=== PATIENT | female | born 1940 | race Caucasian/White ===

== ENCOUNTER 2017-07-21 17:18 | Emergency (ER) | payer MEDICARE, BC ==
[2017-07-21] MEDS ORDERED: Sodium Chloride 0.9% 10 ML Syringe FLUSH PRN (17:48)
[2017-07-21] MEDS ORDERED: Morphine 2 MG/ML Syringe IVPUSH ONE (17:50)
[2017-07-21] MEDS ORDERED: Sodium Chloride 0.9% 1,000 ML IV ONE (17:51)
--- NOTE | 2017-07-21 17:53 | EDM.PDOC ---
ED HPI GENERAL MEDICAL PROBLEM - General Chief Complaint: Gastrointestinal Problem Stated Complaint: DIARRHEA/WEAKNESS Time Seen by Provider: 07/21/17 17:45 Source of Information: Reports: Patient History Limitations: Reports: No Limitations - History of Present Illness INITIAL COMMENTS - FREE TEXT/NARRATIVE: Hilda is a 77-year-old female who presents to the emergency Department today with complaints of a 3 day history of watery frequent diarrhea. Patient endorses lower abdominal cramping, she denies any nausea or vomiting or hematochezia. Patient denies any fever or chills, she does endorse feeling weak with near syncope earlier today. Patient reports she has been trying to stay well-hydrated with water and Gatorade but feels she just cannot stand top of it. Patient denies any recent antibiotic use or sick contacts. Patient denies any chest pain, shortness of breath, URI symptoms. Onset: Gradual Duration: Day(s): (3) - Related Data Allergies Allergy/AdvReac Type Severity Reaction Status Date / Time celecoxib Allergy Cannot Verified 05/14/14 09:40 Remember hydrocodone Allergy Cannot Verified 05/14/14 09:40 Remember naproxen Allergy Hives Verified 05/14/14 09:40 Sulfa (Sulfonamide Allergy Vomiting Verified 07/21/17 17:31 Antibiotics) terfenadine [From [place]] Allergy Hives Verified 05/14/14 09:40 Home Meds: Home Meds Acetaminophen [Tylenol Extra Strength] 500 mg PO BEDTIME PRN 05/14/14 [History] Ascorbic Acid [Vitamin C] 500 mg PO DAILY 05/14/14 [History] Aspirin 81 mg PO DAILY 05/14/14 [History] Calcium Carbonate/Vitamin D3 [Calcium 600-Vit D3 200 Tablet] 1 each PO DAILY [History] Estradiol [Vagifem] 10 mcg VG ASDIRECTED 05/14/14 [History] Losartan [Cozaar] 100 mg PO BID 05/14/14 [History] Multivitamin [Multi-Vitamin Daily] 1 each PO DAILY 05/14/14 [History] Omeprazole 20 mg PO BIDAC 05/14/14 [History] Pravastatin Sodium [Pravastatin (Pravachol)] 40 mg PO DAILY 05/14/14 [History] Cyclobenzaprine [Flexeril] 10 mg PO DAILY 07/21/17 [History] Oxybutynin Chloride [Oxybutynin Chloride] 5 mg PO BID 07/21/17 [History] Pantoprazole Sodium [Pantoprazole Sodium] 40 mg PO DAILY 07/21/17 [History] traZODone HCl [Trazodone HCl] 50 mg PO BEDTIME 07/21/17 [History] Past Medical History Cardiovascular History: Reports: Hypertension Gastrointestinal History: Reports: GERD Genitourinary History: Reports: Urinary Incontinence Musculoskeletal History: Reports: Arthritis, Back Pain, Chronic Psychiatric History: Reports: Depression Social & Family History - Tobacco Use Years of Tobacco use: 1 - Caffeine Use Caffeine Use: Reports: Coffee - Alcohol Use Days Per Week of Alcohol Use: 3 Number of Drinks Per Day: 1 Total Drinks Per Week: 3 - Recreational Drug Use Recreational Drug Use: No ED ROS GENERAL - Review of Systems Review Of Systems: ROS reveals no pertinent complaints other than HPI. ED EXAM, GI/ABD - Physical Exam Exam: See Below Exam Limited By: No Limitations General Appearance: Alert, WD/WN, No Apparent Distress Eyes: Bilateral: Normal Appearance, EOMI Ears: Normal External Exam Nose: Normal Inspection Throat/Mouth: Normal Oropharynx, Other (Modestly dehydrated) Head: Atraumatic Neck: Normal Inspection Respiratory/Chest: No Respiratory Distress, Lungs Clear Cardiovascular: Regular Rate, Rhythm, No Murmur GI/Abdominal Exam: Normal Bowel Sounds, Soft, Tender (Lower abdomen, midline.) Extremities: Normal Inspection Neurological: Alert, Oriented, CN II-XII Intact Psychiatric: Normal Affect, Normal Mood Skin Exam: Warm, Dry, Intact Lymphatic: No Adenopathy Course - Vital Signs Last Recorded V/S: Last Vital Signs Temp 36.9 C 07/21/17 17:38 Pulse 75 07/21/17 17:38 Resp 16 07/21/17 17:38 BP 104/48 L 07/21/17 17:38 Pulse Ox 90 L 07/21/17 17:38 Hilda is a 77-year-old female who presents to the emergency department today with complaints of weakness and near syncope after having 3 days of frequent watery diarrhea. Please refer to history of present illness in focused exam. Patient is modestly dry and exam, she is modestly pale. Likely a viral gastroenteritis, she denies any recent antibiotic use to suggest Clostridium difficile. Peripheral IV was established and patient was given a liter of fluid here in the emergency department as well as 1 mg of morphine for abdominal cramping which did relieve her pain. CBC was obtained which returned with a white count of 6.4, hemoglobin is slightly low at 10.8. Patient's sodium today is 132 and potassium is 3.5, remaining CMP is within normal limits. Patient is feeling much better here after 1 L of fluid, since her arrival to the emergency room, she has had no diarrhea and has been unable to provide a stool sample for culture. Patient feels she is stable to be discharged home, she was walked around the emergency department without any difficulty, she denies any current dizziness or lightheadedness. I did discuss with patient starting a probiotic, culturelle, which should help resolve the diarrhea. I did inform patient that if her diarrhea continues, we will send her home with stool collection containers which she can return to lab for evaluation. I encouraged patient to maintain hydration, encouraged drinking Gatorade or Powerade to help replace her electrolytes. Reasons to return to the emergency department were discussed in detail, and would like patient seen by her primary care provider in the next week. Patient is agreeable with plan of care and was discharged in stable condition with her sister driving. - Orders/Labs/Meds Orders: Active Orders 24 hr Category Date Time Status Peripheral IV Care [RC] . DIRECTED Care 07/21/17 17:48 Active CLOSTRIDIUM DIFFICILE BY PCR [RM] Stat Lab 07/21/17 17:49 Uncollected CULTURE STOOL + SHIGATOX [RM] Stat Lab 07/21/17 17:49 Uncollected OVA AND PARASITES [MREF] Stat Lab 07/21/17 17:50 Uncollected WBC, STOOL [OP] Stat Lab 07/21/17 17:50 Uncollected Sodium Chloride 0.9% [Saline Flush] Med 07/21/17 17:48 Active 10 ml FLUSH ASDIRECTED PRN Peripheral IV Insertion Adult [OM.PC] Routine Oth 07/21/17 17:48 Ordered Medication Orders Sodium Chloride (Saline Flush) 10 ml FLUSH ASDIRECTED PRN PRN Reason: Keep Vein Open Last Admin: 07/21/17 18:21 Dose: 10 ml Labs: Laboratory Tests 07/21/17 07/21/17 07/21/17 Range/Units 18:02 18:02 18:02 WBC 6.4 (4.5-11.0) K/uL RBC 3.49 (3.30-5.50) M/uL Hgb 10.8 L (12.0-15.0) g/dL Hct 32.1 L (36.0-48.0) % MCV 92 (80-98) fL MCH 31 (27-31) pg MCHC 34 (32-36) % Plt Count 218 (150-400) K/uL Neut % (Auto) 65 (36-66) % Lymph % (Auto) 17 L (24-44) % [place] % (Auto) 16 H (2-6) % Eos % (Auto) 2 (2-4) % Baso % (Auto) 0 (0-1) % Sodium 132 L (140-148) mmol/L Potassium 3.5 L (3.6-5.2) mmol/L Chloride 100 (100-108) mmol/L Carbon Dioxide 23 (21-32) mmol/L Anion Gap 12.5 (5.0-14.0) mmol/L BUN 14 (7-18) mg/dL Creatinine 0.8 (0.6-1.0) mg/dL Est Cr Clr Drug Dosing 42.30 mL/min Estimated GFR (MDRD) > 60 (>60) Glucose 133 H (74-106) mg/dL Calcium 8.3 L (8.5-10.1) mg/dL Total Bilirubin 0.7 (0.2-1.0) mg/dL AST 19 (15-37) U/L ALT 30 (12-78) U/L Alkaline Phosphatase 71 (46-116) U/L Total Protein 6.4 (6.4-8.2) g/dL Albumin 3.4 (3.4-5.0) g/dL Globulin 3.0 (2.3-3.5) g/dL Albumin/Globulin Ratio 1.1 L (1.2-2.2) Lipase 78 (73-393) U/L Meds: Medications Generic Name Dose Route Start Last Admin Trade Name Freq PRN Reason Stop Dose Admin Sodium Chloride 10 ml 07/21/17 17:48 07/21/17 18:21 Saline Flush FLUSH 10 ml ASDIRECTED PRN Administration Keep Vein Open Discontinued Medications Generic Name Dose Route Start Last Admin Trade Name Freq PRN Reason Stop Dose Admin Sodium Chloride 1,000 mls @ 999 mls/hr 07/21/17 17:51 07/21/17 18:20 Normal Saline IV 07/21/17 18:51 999 mls/hr .BOLUS ONE Administration Morphine Sulfate 1 mg 07/21/17 17:50 07/21/17 18:21 Morphine IVPUSH 07/21/17 17:51 1 mg ONETIME ONE Administration Departure - Departure Time of Disposition: 20:00 Disposition: Home, Self-Care 01 Condition: Good Clinical Impression: Diarrhea - Discharge Information Instructions: Dehydration, Adult, [id number], Diarrhea, Adult, [id number] Referrals: PCP,None [Primary Care Provider] - Forms: ED Department Discharge Additional Instructions: Hilda, I would strongly recommend starting a probiotic, Culturelle, twice daily until your diarrhea resolves. He should be able to find this by the pharmacy at [facility]. I would recommend binding foods for the next 24-48 hours including applesauce, bananas, peanut butter, eggs. If your diarrhea continues at home, please bring back a stool sample for evaluation. As discussed, your sodium and potassium were mildly low today, I would strongly encourage you to drink at least 2 bottles of Gatorade a day until your diarrhea has stopped. your hemoglobin is also mildly low at 10.8, I don't know if this is normal for you or not but would like this rechecked along with your electrolyte levels in the next week at your primary care clinic. If your symptoms continue or you develop worsening lightheadedness or weakness please return to the emergency department. It was nice meeting you and your sister and I hope you feel better soon. - My Orders Last 24 Hours: My Active Orders 07/21/17 17:48 Peripheral IV Care [RC] . DIRECTED Sodium Chloride 0.9% [Saline Flush] 10 ml FLUSH ASDIRECTED PRN Peripheral IV Insertion Adult [OM.PC] Routine 07/21/17 17:49 CLOSTRIDIUM DIFFICILE BY PCR [RM] Stat CULTURE STOOL + SHIGATOX [RM] Stat 07/21/17 17:50 OVA AND PARASITES [MREF] Stat WBC, STOOL [OP] Stat - Assessment/Plan Last 24 Hours: My Active Orders 07/21/17 17:48 Peripheral IV Care [RC] . DIRECTED Sodium Chloride 0.9% [Saline Flush] 10 ml FLUSH ASDIRECTED PRN Peripheral IV Insertion Adult [OM.PC] Routine 07/21/17 17:49 CLOSTRIDIUM DIFFICILE BY PCR [RM] Stat CULTURE STOOL + SHIGATOX [RM] Stat 07/21/17 17:50 OVA AND PARASITES [MREF] Stat WBC, STOOL [OP] Stat
[2017-07-21 20:07] VITALS: BP 133/59
== END 2017-07-21 20:02 | disposition home or self-care (01) ==
LOC: JP.ED 17:18
DX: R19.7 Diarrhea, unspecified (principal); I10 Essential (primary) hypertension; K21.9 Gastro-esophageal reflux disease without esophagitis; F43.29 Adjustment disorder with other symptoms; Z79.82 Long term (current) use of aspirin; Z79.899 Other long term (current) drug therapy; Z88.5 Allergy status to narcotic agent; Z88.2 Allergy status to sulfonamides; Z88.8 Allergy status to other drugs, medicaments and biological substances
CPT/HCPCS: 36415; 80053; 83690; 85025; 96361; 96374; 99284; J2270; J7040; J7050

== ENCOUNTER 2018-02-14 09:32 | Emergency (ER) | payer MEDICARE, BC ==
--- NOTE | 2018-02-14 10:25 | EDM.PDOC ---
ED HPI GENERAL MEDICAL PROBLEM - General Chief Complaint: General Stated Complaint: CHEST TIGHTNESS; WEAKNESS Time Seen by Provider: 02/14/18 10:25 Source of Information: Reports: Patient History Limitations: Reports: No Limitations - History of Present Illness INITIAL COMMENTS - FREE TEXT/NARRATIVE: pt has been very fatiqued. She developed chest tightness today. She was not real sob. She has total care of her and her household. She is very fatiqued with all that she has to do. Onset: Other ( The chest tightness started today. ) Duration: Hour(s): Location: Reports: Chest Associated Symptoms: Reports: Shortness of Breath, Other ( chest tightness) Chest Pain Score (Numeric/FACES): 6 - Related Data Allergies Allergy/AdvReac Type Severity Reaction Status Date / Time celecoxib Allergy Cannot Verified 02/14/18 10:06 Remember hydrocodone Allergy Cannot Verified 02/14/18 10:06 Remember naproxen Allergy Hives Verified 02/14/18 10:06 Sulfa (Sulfonamide Allergy Vomiting Verified 02/14/18 10:06 Antibiotics) terfenadine [From [place]] Allergy Hives Verified 02/14/18 10:06 Home Meds: Home Meds Acetaminophen [Tylenol Extra Strength] 500 mg PO BEDTIME PRN 05/14/14 [History] Ascorbic Acid [Vitamin C] 500 mg PO DAILY 05/14/14 [History] Aspirin 81 mg PO DAILY 05/14/14 [History] Calcium Carbonate/Vitamin D3 [Calcium 600-Vit D3 200 Tablet] 1 each PO DAILY [History] Losartan [Cozaar] 100 mg PO BID 05/14/14 [History] Multivitamin [Multi-Vitamin Daily] 1 each PO DAILY 05/14/14 [History] Pravastatin Sodium [Pravastatin (Pravachol)] 40 mg PO DAILY 05/14/14 [History] Cyclobenzaprine [Flexeril] 10 mg PO DAILY 07/21/17 [History] Oxybutynin Chloride [Oxybutynin Chloride] 5 mg PO BID 07/21/17 [History] Pantoprazole Sodium [Pantoprazole Sodium] 40 mg PO DAILY 07/21/17 [History] traZODone HCl [Trazodone HCl] 50 mg PO BEDTIME 07/21/17 [History] Diclofenac Potassium [Cataflam] 1 tab PO BID 02/14/18 [History] Docusate Sodium 1 cap PO BID 02/14/18 [History] Gabapentin [Neurontin] 1 cap PO TID 02/14/18 [History] Loratadine 1 tab PO DAILY 02/14/18 [History] Melatonin 1 tab PO BEDTIME 02/14/18 [History] Polyethylene Glycol 3350 [MiraLAX] 1 packet PO BID 02/14/18 [History] Pseudoephedrine HCl 1 tab PO DAILY 02/14/18 [History] Past Medical History HEENT History: Reports: Impaired Vision Cardiovascular History: Reports: Hypertension Gastrointestinal History: Reports: GERD Genitourinary History: Reports: Urinary Incontinence Musculoskeletal History: Reports: Arthritis, Back Pain, Chronic Psychiatric History: Reports: Depression - Past Surgical History Female Surgical History: Reports: Hysterectomy Social & Family History - Tobacco Use Smoking Status *Q: Never Smoker Years of Tobacco use: 1 - Caffeine Use Caffeine Use: Reports: Coffee - Alcohol Use Days Per Week of Alcohol Use: 3 Number of Drinks Per Day: 1 Total Drinks Per Week: 3 - Recreational Drug Use Recreational Drug Use: No ED ROS GENERAL - Review of Systems Review Of Systems: See Below Constitutional: Reports: No Symptoms HEENT: Reports: No Symptoms Respiratory: Reports: No Symptoms Cardiovascular: Reports: Chest Pain, Other ( Pt did describe her tightness but she did not have true chest pain. ) GI/Abdominal: Reports: No Symptoms : Reports: No Symptoms Musculoskeletal: Reports: No Symptoms Skin: Reports: No Symptoms ED EXAM, GENERAL - Physical Exam Exam: See Below Free Text/Narrative:: pt arrived with tightness in her chest which has been going on part of the morning. Exam Limited By: No Limitations General Appearance: Alert, Mild Distress, Other ( After being her about 3/4 hour the tightness was gone. ) Ears: Normal TMs Nose: Normal Inspection Throat/Mouth: Normal Inspection Head: Atraumatic Neck: Normal Inspection Respiratory/Chest: No Respiratory Distress Cardiovascular: Regular Rate, Rhythm GI/Abdominal: Soft, Non-Tender (Female) Exam: Deferred Rectal (Female) Exam: Deferred Back Exam: Normal Inspection Extremities: Normal Inspection Neurological: Alert, Oriented, Normal Cognition Psychiatric: Anxious Course - Vital Signs Last Recorded V/S: Last Vital Signs Temp 35 C L 02/14/18 10:04 Pulse 71 02/14/18 10:40 Resp 11 L 02/14/18 10:40 BP 149/57 H 02/14/18 10:40 Pulse Ox 98 02/14/18 10:40 - Orders/Labs/Meds Orders: Active Orders 24 hr Category Date Time Status EKG Documentation Completion [RC] ASDIRECTED Care 02/14/18 10:23 Active EKG Documentation Completion [RC] ASDIRECTED Care 02/14/18 13:18 Ordered UA W/MICROSCOPIC [URIN] Urgent Lab 02/14/18 10:24 Ordered EKG 12 Lead [EK] Routine Ther 02/14/18 10:23 Ordered EKG 12 Lead [EK] Routine Ther 02/14/18 13:18 Ordered Labs: Laboratory Tests 02/14/18 02/14/18 02/14/18 Range/Units 10:33 10:33 10:33 WBC 9.6 (4.5-11.0) K/uL RBC 3.83 (3.30-5.50) M/uL Hgb 11.8 L (12.0-15.0) g/dL Hct 35.9 L (36.0-48.0) % MCV 94 (80-98) fL MCH 31 (27-31) pg MCHC 33 (32-36) % Plt Count 310 (150-400) K/uL Neut % (Auto) 67 H (36-66) % Lymph % (Auto) 22 L (24-44) % [place] % (Auto) 9 H (2-6) % Eos % (Auto) 1 L (2-4) % Baso % (Auto) 0 (0-1) % Sodium 141 (140-148) mmol/L Potassium 4.1 (3.6-5.2) mmol/L Chloride 104 (100-108) mmol/L Carbon Dioxide 30 (21-32) mmol/L Anion Gap 7.5 (5.0-14.0) mmol/L BUN 26 H D (7-18) mg/dL Creatinine 0.7 (0.6-1.0) mg/dL Est Cr Clr Drug Dosing 48.34 mL/min Estimated GFR (MDRD) > 60 (>60) Glucose 100 (74-106) mg/dL Calcium 8.8 (8.5-10.1) mg/dL Ferritin (8-388) ng/ml Total Bilirubin 0.5 (0.2-1.0) mg/dL AST 39 H D (15-37) U/L ALT 90 H (12-78) U/L Alkaline Phosphatase 63 (46-116) U/L Creatine Kinase 83 (26-192) U/L Troponin I 0.063 H* (0.000-0.056) ng/mL Total Protein 6.1 L (6.4-8.2) g/dL Albumin 3.6 (3.4-5.0) g/dL Globulin 2.5 (2.3-3.5) g/dL Albumin/Globulin Ratio 1.4 (1.2-2.2) 02/14/18 02/14/18 Range/Units 11:57 12:51 WBC (4.5-11.0) K/uL RBC (3.30-5.50) M/uL Hgb (12.0-15.0) g/dL Hct (36.0-48.0) % MCV (80-98) fL MCH (27-31) pg MCHC (32-36) % Plt Count (150-400) K/uL Neut % (Auto) (36-66) % Lymph % (Auto) (24-44) % [place] % (Auto) (2-6) % Eos % (Auto) (2-4) % Baso % (Auto) (0-1) % Sodium (140-148) mmol/L Potassium (3.6-5.2) mmol/L Chloride (100-108) mmol/L Carbon Dioxide (21-32) mmol/L Anion Gap (5.0-14.0) mmol/L BUN (7-18) mg/dL Creatinine (0.6-1.0) mg/dL Est Cr Clr Drug Dosing mL/min Estimated GFR (MDRD) (>60) Glucose (74-106) mg/dL Calcium (8.5-10.1) mg/dL Ferritin 100 (8-388) ng/ml Total Bilirubin (0.2-1.0) mg/dL AST (15-37) U/L ALT (12-78) U/L Alkaline Phosphatase (46-116) U/L Creatine Kinase (26-192) U/L Troponin I 0.278 H* (0.000-0.056) ng/mL Total Protein (6.4-8.2) g/dL Albumin (3.4-5.0) g/dL Globulin (2.3-3.5) g/dL Albumin/Globulin Ratio (1.2-2.2) Meds: Medications Discontinued Medications Generic Name Dose Route Start Last Admin Trade Name Michael PRN Reason Stop Dose Admin Aspirin 324 mg 02/14/18 11:08 02/14/18 11:35 Aspirin PO 02/14/18 11:09 324 mg ONETIME ONE Administration Loperamide HCl 2 mg 02/14/18 11:37 02/14/18 11:52 Imodium PO 02/14/18 11:38 2 mg ONETIME ONE Administration - Re-Assessments/Exams Free Text/Narrative Re-Assessment/Exam: 02/14/18 13:49 pt had tightness for about 1/2 hour and then it went away. She has not had further discomfort. She has been stable. Her first trop was borderline. -- .063. In 3 hours her trop was repeated and was .278 02/14/18 13:51 Departure - Departure Time of Disposition: 13:51 Disposition: DC/Tfer to Acute Hospital 02 Condition: Fair Clinical Impression: Elevated troponin, Non-Q wave infarction, Anemia - Discharge Information Referrals: Hiren Jorge MD [Primary Care Provider] - Forms: ED Department Discharge Care Plan Goals: transfer to [place] - My Orders Last 24 Hours: My Active Orders 02/14/18 10:23 EKG Documentation Completion [RC] ASDIRECTED EKG 12 Lead [EK] Routine 02/14/18 10:24 UA W/MICROSCOPIC [URIN] Urgent 02/14/18 13:18 EKG Documentation Completion [RC] ASDIRECTED EKG 12 Lead [EK] Routine - Assessment/Plan Last 24 Hours: My Active Orders 02/14/18 10:23 EKG Documentation Completion [RC] ASDIRECTED EKG 12 Lead [EK] Routine 02/14/18 10:24 UA W/MICROSCOPIC [URIN] Urgent 02/14/18 13:18 EKG Documentation Completion [RC] ASDIRECTED EKG 12 Lead [EK] Routine
--- NOTE | 2018-02-14 11:15 | CR ---
Chest 1V Frontal FINDINGS: There is mild cardiac enlargement. The vascular structures appear within normal limits.. No infiltrates or effusions are demonstrated. There are findings of the right shoulder consistent with rotator cuff tear. IMPRESSION: 1. No acute findings.
[2018-02-14] MEDS: Aspirin 81 MG Tab.Chew PO ONE (11:35)
[2018-02-14] MEDS: Loperamide 2 MG Cap PO ONE (11:52)
[2018-02-14] MEDS: Clopidogrel 75 MG Tab PO ONE (13:49)
[2018-02-14 13:54] VITALS: BP 133/61
== END 2018-02-14 15:02 ==
LOC: JP.ED 09:32
DX: I21.4 Non-ST elevation (NSTEMI) myocardial infarction (principal); R79.89 Other specified abnormal findings of blood chemistry; D64.9 Anemia, unspecified; K21.9 Gastro-esophageal reflux disease without esophagitis; I10 Essential (primary) hypertension; Z88.2 Allergy status to sulfonamides; Z88.8 Allergy status to other drugs, medicaments and biological substances; Z88.5 Allergy status to narcotic agent; Z79.82 Long term (current) use of aspirin; Z79.899 Other long term (current) drug therapy
CPT/HCPCS: 36415; 71045; 71045-26; 80053; 82550; 82728; 84484; 85025; 85730; 93005; 99285-25; A9270-GY

== ENCOUNTER 2018-02-19 21:35 | Emergency (ER) | payer MEDICARE, BC ==
[2018-02-19 22:15] VITALS: BP 118/54
--- NOTE | 2018-02-19 22:26 | EDM.PDOC ---
ED HPI GENERAL MEDICAL PROBLEM - General Chief Complaint: Skin Complaint Stated Complaint: R ARM PAIN/BRUISING Time Seen by Provider: 02/19/18 22:20 Source of Information: Reports: Patient, Family History Limitations: Reports: No Limitations - History of Present Illness INITIAL COMMENTS - FREE TEXT/NARRATIVE: pt arrived with bruising on both arms. She has some redish discoloration on the center of the bruise which is a little unusual in color. She has been put on the britlina as a thinner. She does not have swelling and she does not have tenderness and it does not feel warm. Sh has been applying lotion to the arm. Onset: Today, Other ( The color did change today. She was sent to [facility] in [place] on Sunday and did have a cardiac cath and had a stent placed. ) Duration: Hour(s): Location: Reports: Upper Extremity, Right Associated Symptoms: Reports: No Other Symptoms Treatments RAMPMAN: Reports: Other (see below) Other Treatments RAMPMAN: none - Related Data Allergies Allergy/AdvReac Type Severity Reaction Status Date / Time celecoxib Allergy Cannot Verified 02/19/18 22:15 Remember hydrocodone Allergy Cannot Verified 02/19/18 22:15 Remember naproxen Allergy Hives Verified 02/19/18 22:15 Sulfa (Sulfonamide Allergy Vomiting Verified 02/19/18 22:15 Antibiotics) terfenadine [From [place]] Allergy Hives Verified 02/19/18 22:15 Home Meds: Home Meds Acetaminophen [Tylenol Extra Strength] 500 mg PO BEDTIME PRN 05/14/14 [History] Ascorbic Acid [Vitamin C] 500 mg PO DAILY 05/14/14 [History] Aspirin 81 mg PO DAILY 05/14/14 [History] Calcium Carbonate/Vitamin D3 [Calcium 600-Vit D3 200 Tablet] 1 each PO DAILY [History] Losartan [Cozaar] 100 mg PO BID 05/14/14 [History] Multivitamin [Multi-Vitamin Daily] 1 each PO DAILY 05/14/14 [History] Pravastatin Sodium [Pravastatin (Pravachol)] 40 mg PO DAILY 05/14/14 [History] Cyclobenzaprine [Flexeril] 10 mg PO DAILY 07/21/17 [History] Oxybutynin Chloride 5 mg PO BID 07/21/17 [History] Pantoprazole Sodium 40 mg PO DAILY 07/21/17 [History] traZODone HCl [Trazodone HCl] 50 mg PO BEDTIME 07/21/17 [History] Diclofenac Potassium [Cataflam] 1 tab PO BID 02/14/18 [History] Docusate Sodium 1 cap PO BID 02/14/18 [History] Gabapentin [Neurontin] 1 cap PO TID 02/14/18 [History] Loratadine 1 tab PO DAILY 02/14/18 [History] Melatonin 1 tab PO BEDTIME 02/14/18 [History] Polyethylene Glycol 3350 [MiraLAX] 1 packet PO BID 02/14/18 [History] Pseudoephedrine HCl 1 tab PO DAILY 02/14/18 [History] Past Medical History HEENT History: Reports: Impaired Vision Cardiovascular History: Reports: Hypertension, PR Gastrointestinal History: Reports: GERD Genitourinary History: Reports: Urinary Incontinence Musculoskeletal History: Reports: Arthritis, Back Pain, Chronic Psychiatric History: Reports: Depression - Past Surgical History Cardiovascular Surgical History: Reports: Coronary Artery Stent Female Surgical History: Reports: Hysterectomy Social & Family History - Tobacco Use Smoking Status *Q: Never Smoker Years of Tobacco use: 1 - Caffeine Use Caffeine Use: Reports: Coffee - Alcohol Use Days Per Week of Alcohol Use: 3 Number of Drinks Per Day: 1 Total Drinks Per Week: 3 - Recreational Drug Use Recreational Drug Use: No ED ROS GENERAL - Review of Systems Review Of Systems: See Below Constitutional: Reports: No Symptoms HEENT: Reports: No Symptoms Respiratory: Reports: No Symptoms Cardiovascular: Reports: No Symptoms Endocrine: Reports: No Symptoms GI/Abdominal: Reports: No Symptoms : Reports: No Symptoms Musculoskeletal: Reports: Other (pt has a redish discoloration in the center of the bruise on the rt arm. There is a slight amount of the redness in the center of the bruise on the left. This is not tender, not swollen and does not feel hot. ) Skin: Reports: No Symptoms Neurological: Reports: No Symptoms ED EXAM, SKIN/RASH Exam: See Below Text/Narrative:: pt had a cardiac cath on Sunday and she has some redness in the center portion of the bruis on the rt arm. Exam Limited By: No Limitations General Appearance: Alert, Other (pt is feeling well and has mno pain. ) Ears: Normal TMs Nose: Normal Inspection Throat/Mouth: Normal Inspection Head: Atraumatic Neck: Normal Inspection Respiratory/Chest: No Respiratory Distress Extremities: Other ( rt arm is very bruised and there is a concern about the redish discoloration in the center of the bruise. There is no tenderness and no swelling. It does not feel hot. ) Course - Vital Signs Last Recorded V/S: Last Vital Signs Temp 36.8 C 02/19/18 22:14 Pulse 64 02/19/18 22:14 Resp 16 02/19/18 22:14 BP 118/54 L 02/19/18 22:14 Pulse Ox 99 02/19/18 22:14 Departure - Departure Time of Disposition: 22:30 Disposition: Home, Self-Care 01 Condition: Fair Clinical Impression: Bruise - Discharge Information Referrals: Hiren Jorge MD [Primary Care Provider] - Care Plan Goals: soak in tepid water followed by a cool pack. rtc for recheck if it should become hot or swollen.
== END 2018-02-19 22:46 | disposition home or self-care (01) ==
LOC: JP.ED 21:35
DX: S40.022A Contusion of left upper arm, initial encounter (principal); S40.021A Contusion of right upper arm, initial encounter; I25.2 Old myocardial infarction; I10 Essential (primary) hypertension; Z88.5 Allergy status to narcotic agent; Z88.2 Allergy status to sulfonamides; Z88.8 Allergy status to other drugs, medicaments and biological substances; Z79.899 Other long term (current) drug therapy; Z79.82 Long term (current) use of aspirin; X58.XXXA Exposure to other specified factors, initial encounter
CPT/HCPCS: 99283

== ENCOUNTER 2018-07-07 21:05 | Emergency (ER) | payer MEDICARE, BC ==
[2018-07-07 21:30] VITALS: BP 157/58
--- NOTE | 2018-07-07 22:02 | EDM.PDOC ---
ED HPI GENERAL MEDICAL PROBLEM - General Chief Complaint: Lower Extremity Injury/Pain Stated Complaint: LEFT ANKLE EDEMA Time Seen by Provider: 07/07/18 21:46 Source of Information: Reports: Patient History Limitations: Reports: No Limitations - History of Present Illness INITIAL COMMENTS - FREE TEXT/NARRATIVE: 78 yo presents to ER with mild pain and swelling left dorsum foot. Cannot recall trauma. She did wear saddles today and foot became swollen throughout the day. very tender and ecchymotic. Pt is anticoagulated with Plavix left foot Pain Score (Numeric/FACES): 6 - Related Data Allergies Allergy/AdvReac Type Severity Reaction Status Date / Time celecoxib Allergy Cannot Verified 07/07/18 21:41 Remember hydrocodone Allergy Rash Verified 07/07/18 21:41 naproxen Allergy Hives Verified 07/07/18 21:41 Sulfa (Sulfonamide Allergy Vomiting Verified 07/07/18 21:41 Antibiotics) terfenadine [From S[place]ane] Allergy Hives Verified 07/07/18 21:41 Home Meds: Home Meds Ascorbic Acid [Vitamin C] 500 mg PO DAILY 05/14/14 [History] Aspirin 81 mg PO DAILY 05/14/14 [History] Calcium Carbonate/Vitamin D3 [Calcium 600-Vit D3 200 Tablet] 1 each PO DAILY [History] Multivitamin [Multi-Vitamin Daily] 1 each PO DAILY 05/14/14 [History] Cyclobenzaprine [Flexeril] 10 mg PO DAILY 07/21/17 [History] Oxybutynin Chloride 5 mg PO BID 07/21/17 [History] Pantoprazole Sodium 40 mg PO DAILY 07/21/17 [History] traZODone HCl [Trazodone HCl] 50 mg PO BEDTIME 07/21/17 [History] Docusate Sodium 100 mg PO BID PRN 02/14/18 [History] Gabapentin [Neurontin] 200 mg PO TID 02/14/18 [History] Loratadine 10 mg PO DAILY 02/14/18 [History] Melatonin 5 mg PO BEDTIME 02/14/18 [History] Polyethylene Glycol 3350 [MiraLAX] 1 packet PO BID 02/14/18 [History] Losartan [Cozaar] 100 mg PO DAILY 02/19/18 [History] Metoprolol Tartrate 25 mg PO BID 02/19/18 [History] Nitroglycerin 1 tab SL ASDIRECTED 02/19/18 [History] atorvaSTATin [Lipitor] 40 mg PO DAILY 02/19/18 [History] Clopidogrel [Plavix] 75 mg PO DAILY 06/27/18 [History] amLODIPine/atorvaSTATin [Caduet 10 MG-10 MG] 1 tab PO DAILY 06/27/18 [History] Past Medical History HEENT History: Reports: Impaired Vision Other HEENT History: wears glasses Cardiovascular History: Reports: Hypertension, [place] Gastrointestinal History: Reports: GERD Genitourinary History: Reports: Urinary Incontinence 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: Musculoskeletal History: Reports: Arthritis, Back Pain, Chronic Neurological History: Reports: Migraines Psychiatric History: Reports: Depression - Infectious Disease History Infectious Disease History: Reports: Chicken Pox, Measles - Past Surgical History Cardiovascular Surgical History: Reports: Coronary Artery Stent GI Surgical History: Reports: EGD Female Surgical History: Reports: Hysterectomy Musculoskeletal Surgical History: Reports: Knee Replacement Other Musculoskeletal Surgeries/Procedures:: right knee replacement Social & Family History - Family History Family Medical History: Noncontributory - Tobacco Use Smoking Status *Q: Never Smoker - Caffeine Use Caffeine Use: Reports: Coffee Review of Systems - Review of Systems Review Of Systems: See Below Respiratory: Denies: Shortness of Breath, Wheezing Cardiovascular: Denies: Chest Pain ED EXAM, GENERAL - Physical Exam Exam: See Below Exam Limited By: No Limitations General Appearance: Alert, WD/WN, No Apparent Distress Respiratory/Chest: No Respiratory Distress, Lungs Clear, Normal Breath Sounds. No: Crackles, Rhonchi, Wheezing Cardiovascular: Regular Rate, Rhythm Extremities: Other (left dorsum mid foot dark ecchymosis with moderate edema) Course - Vital Signs Last Recorded V/S: Last Vital Signs Temp 36.0 C 07/07/18 21:48 Pulse 69 07/07/18 21:48 Resp 16 07/07/18 21:48 BP 157/58 H 07/07/18 21:48 Pulse Ox 100 07/07/18 21:48 - Orders/Labs/Meds Orders: Active Orders 24 hr Category Date Time Status Foot 2V Lt [CR] Stat Exams 07/07/18 21:58 Ordered - Radiology Interpretation Free Text/Narrative:: preliminary read negative Departure - Departure Time of Disposition: 22:27 Disposition: Home, Self-Care 01 Condition: Good Clinical Impression: Foot pain, left, Bruise - Discharge Information *PRESCRIPTION DRUG MONITORING PROGRAM REVIEWED*: Not Applicable *COPY OF PRESCRIPTION DRUG MONITORING REPORT IN PATIENT JOSUE: Not Applicable Instructions: RICE for Routine Care of Injuries, [id number] Referrals: Hiren Jorge MD [Primary Care Provider] - Forms: ED Department Discharge Additional Instructions: ice as needed elevate legs Miguelangel wrap until swelling has decreased follow-up with primary care if no improvement by end of the week and sooner if redness or pain increases - My Orders Last 24 Hours: My Active Orders 07/07/18 21:58 Foot 2V Lt [CR] Stat - Assessment/Plan Last 24 Hours: My Active Orders 07/07/18 21:58 Foot 2V Lt [CR] Stat
--- NOTE | 2018-07-08 14:34 | CR ---
Left foot Findings: There is no evidence for fracture. There are hammertoes. There is joint space loss at the first MTP j oint. There is a calcaneal spur. Impression: 1. No acute findings.
== END 2018-07-07 22:51 | disposition home or self-care (01) ==
LOC: JP.ED 21:05
DX: S90.32XA Contusion of left foot, initial encounter (principal); I10 Essential (primary) hypertension; Z79.82 Long term (current) use of aspirin; Z79.899 Other long term (current) drug therapy; Z88.2 Allergy status to sulfonamides; Z88.8 Allergy status to other drugs, medicaments and biological substances; X58.XXXA Exposure to other specified factors, initial encounter
CPT/HCPCS: 73620-26-LT; 73620-LT; 99284

== ENCOUNTER 2019-04-02 03:35 | Emergency (ER) | payer BC, MEDICARE ==
[2019-04-02 03:39] VITALS: BP 180/69
--- NOTE | 2019-04-02 03:57 | EDM.PDOC ---
ED HPI GENERAL MEDICAL PROBLEM - General Chief Complaint: Abdominal Pain Stated Complaint: MEDICAL VIA [facility] Time Seen by Provider: 04/02/19 03:54 Source of Information: Reports: Patient History Limitations: Reports: No Limitations - History of Present Illness INITIAL COMMENTS - FREE TEXT/NARRATIVE: pt arrived with pain in the lower abdoman which started Sunday. She does have a history of UTIs. She does go to the bathroom often. Onset: Other ( started Sunday nit. She did have a episode of diarrhea but that is now better. ) Duration: Hour(s): Location: Reports: Abdomen Associated Symptoms: Reports: No Other Symptoms abd Pain Score (Numeric/FACES): 4 - Related Data Allergies Allergy/AdvReac Type Severity Reaction Status Date / Time celecoxib Allergy Cannot Verified 04/02/19 03:38 Remember hydrocodone Allergy Rash Verified 04/02/19 03:38 naproxen Allergy Hives Verified 04/02/19 03:38 Sulfa (Sulfonamide Allergy Vomiting Verified 04/02/19 03:38 Antibiotics) terfenadine [From Seldane] Allergy Hives Verified 04/02/19 03:38 Home Meds: Home Meds Ascorbic Acid [Vitamin C] 500 mg PO DAILY 05/14/14 [History] Aspirin 81 mg PO DAILY 05/14/14 [History] Calcium Carbonate/Vitamin D3 [Calcium 600-Vit D3 200 Tablet] 1 each PO DAILY [History] Multivitamin [Multi-Vitamin Daily] 1 each PO DAILY 05/14/14 [History] Pantoprazole Sodium 40 mg PO DAILY 07/21/17 [History] traZODone HCl [Trazodone HCl] 50 mg PO BEDTIME 07/21/17 [History] Docusate Sodium 100 mg PO BID PRN 02/14/18 [History] Gabapentin [Neurontin] 100 mg PO TID 02/14/18 [History] Melatonin 5 mg PO BEDTIME 02/14/18 [History] Polyethylene Glycol 3350 [MiraLAX] 1 packet PO BID 02/14/18 [History] Losartan [Cozaar] 100 mg PO DAILY 02/19/18 [History] Metoprolol Tartrate 12.5 mg PO DAILY 02/19/18 [History] Nitroglycerin 1 tab SL ASDIRECTED 02/19/18 [History] atorvaSTATin [Lipitor] 40 mg PO DAILY 02/19/18 [History] Clopidogrel [Plavix] 75 mg PO DAILY 06/27/18 [History] Carbidopa/Levodopa [Carbidopa-Levo ER 25-100] 1 tab PO DAILY 04/02/19 [History] Past Medical History HEENT History: Reports: Impaired Vision Other HEENT History: wears glasses Cardiovascular History: Reports: CAD, High Cholesterol, Hypertension, [place], Stents Gastrointestinal History: Reports: Chronic Constipation, GERD Genitourinary History: Reports: Urinary Incontinence 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: Musculoskeletal History: Reports: Arthritis, Back Pain, Chronic, RA Neurological History: Reports: Migraines, Parkinson's, TIA Psychiatric History: Reports: Anxiety, Depression - Infectious Disease History Infectious Disease History: Reports: Chicken Pox, Measles - Past Surgical History Head Surgeries/Procedures: Reports: None HEENT Surgical History: Reports: None Cardiovascular Surgical History: Reports: Coronary Artery Stent GI Surgical History: Reports: Colonoscopy, EGD Female Surgical History: Reports: Hysterectomy Neurological Surgical History: Reports: None Musculoskeletal Surgical History: Reports: Knee Replacement Other Musculoskeletal Surgeries/Procedures:: right knee replacement Dermatological Surgical History: Reports: None Social & Family History - Family History Family Medical History: Noncontributory - Tobacco Use Smoking Status *Q: Never Smoker - Caffeine Use Caffeine Use: Reports: Coffee ED ROS GENERAL - Review of Systems Review Of Systems: See Below Constitutional: Reports: No Symptoms HEENT: Reports: No Symptoms Respiratory: Reports: No Symptoms Cardiovascular: Reports: No Symptoms Endocrine: Reports: No Symptoms GI/Abdominal: Reports: Abdominal Pain, Nausea, Other : Reports: Frequency Musculoskeletal: Reports: No Symptoms Skin: Reports: No Symptoms Neurological: Reports: No Symptoms Psychiatric: Reports: No Symptoms ED EXAM, GI/ABD - Physical Exam Exam: See Below Text/Narrative:: pt arrived with pain in the lower abdoman. she was having urinary frequency. She had not noted the rash which started at her back and went around to the front. The rash ended in the groin. Some of the areas of rash did feel vesicular. Exam Limited By: No Limitations General Appearance: Alert, Anxious, Moderate Distress Ears: Normal TMs Nose: Normal Inspection Throat/Mouth: Normal Inspection Head: Atraumatic Neck: Normal Inspection Respiratory/Chest: No Respiratory Distress Cardiovascular: Regular Rate, Rhythm GI/Abdominal Exam: Other (pt has a soft abdoman and she does not have definite guarding. She does have a rash that started at the spine on the rt and it comes around to the front at the groin. These lesions are early and she does not have definite blisters in the front except on afew of the lesions. The pain is very sharp at times. ) Rectal (Female) Exam: Deferred Back Exam: Normal Inspection Extremities: Normal Inspection Neurological: Alert, Oriented, Normal Cognition Psychiatric: Normal Affect Course - Vital Signs Last Recorded V/S: Last Vital Signs Temp 35.8 C 04/02/19 03:36 Pulse 61 04/02/19 03:36 Resp 16 04/02/19 03:36 BP 180/69 H 04/02/19 03:36 Pulse Ox 98 04/02/19 03:36 - Orders/Labs/Meds Labs: Laboratory Tests 04/02/19 04/02/19 04/02/19 Range/Units 04:00 04:00 04:00 WBC 7.7 (4.5-11.0) K/uL RBC 3.97 (3.30-5.50) M/uL Hgb 12.2 (12.0-15.0) g/dL Hct 36.7 (36.0-48.0) % MCV 92 (80-98) fL MCH 31 (27-31) pg MCHC 33 (32-36) % Plt Count 247 (150-400) K/uL Neut % (Auto) 72 H (36-66) % Lymph % (Auto) 18 L (24-44) % [place] % (Auto) 9 H (2-6) % Eos % (Auto) 1 L (2-4) % Baso % (Auto) 0 (0-1) % Sodium 133 L (140-148) mmol/L Potassium 3.8 (3.6-5.2) mmol/L Chloride 97 L (100-108) mmol/L Carbon Dioxide 30 (21-32) mmol/L Anion Gap 9.8 (5.0-14.0) mmol/L BUN 14 (7-18) mg/dL Creatinine 0.6 (0.6-1.0) mg/dL Est Cr Clr Drug Dosing 54.61 mL/min Estimated GFR (MDRD) > 60 (>60) Glucose 101 (74-106) mg/dL Calcium 8.8 (8.5-10.1) mg/dL Total Bilirubin 0.5 (0.2-1.0) mg/dL AST 25 (15-37) U/L ALT 24 (12-78) U/L Alkaline Phosphatase 90 (46-116) U/L C-Reactive Protein 0.01 (0.0-0.3) mg/dL Total Protein 6.4 (6.4-8.2) g/dL Albumin 3.3 L (3.4-5.0) g/dL Globulin 3.1 (2.3-3.5) g/dL Albumin/Globulin Ratio 1.1 L (1.2-2.2) Urine Color Yellow Urine Appearance Slightly cloudy Urine pH 8.0 (4.5-8.0) Ur Specific [place] 1.010 (1.008-1.030) Urine Protein Trace (NEGATIVE) mg/dL Urine Glucose (UA) Normal (NEGATIVE) mg/dL Urine Ketones Negative (NEGATIVE) mg/dL Urine Occult Blood Moderate (NEGATIVE) Urine Nitrite Negative (NEGATIVE) Urine Bilirubin Negative (NEGATIVE) Urine Urobilinogen Normal (NORMAL) mg/dL Ur Leukocyte Esterase Negative (NEGATIVE) Urine RBC 0-5 (0-5) Urine WBC 5-10 H (0-5) Ur Epithelial Cells Moderate Amorphous Sediment Many Urine Bacteria Moderate Urine Mucus Not seen Meds: Medications Discontinued Medications Generic Name Dose Route Start Last Admin Trade Name Freq PRN Reason Stop Dose Admin Ceftriaxone Sodium 1 gm/ 0 gm 04/02/19 04:44 04/02/19 04:54 Lidocaine HCl 2.1 ml IM 04/02/19 04:45 2.1 inj ONETIME ONE Administration Hydromorphone HCl 0.5 mg 04/02/19 04:37 04/02/19 04:47 Dilaudid IM 04/02/19 04:38 0.5 mg ONETIME ONE Administration - Re-Assessments/Exams Free Text/Narrative Re-Assessment/Exam: 04/02/19 04:38 pt has a normal wbc. Her crp is normal. Her urine does look infected. She is rating her pain at t 7-8 at this point in time. She has not been able to rest for the past few nites. Departure - Departure Time of Disposition: 07:50 Disposition: Home, Self-Care 01 Condition: Fair Clinical Impression: Shingles, UTI (urinary tract infection) - Discharge Information Instructions: Shingles, [id number], Urinary Tract Infection, Adult, Easy-to- Read Referrals: PCP,None [Primary Care Provider] - Forms: ED Department Discharge Care Plan Goals: push fluids, see Dr Jorge in the next 2-3 days to recheck the rash which probably is shingles but it is just starting to breakout. zovirax 400mg tid for 5 days, percocet 5/325 q6h prn for severe pain. The percocet can cause constipation use prunes and alot of fiber. cipro 500mg bid for 7 days.
[2019-04-02] MEDS ORDERED: HYDROmorphone 0.5 MG/0.5 ML Syringe IM ONE (04:37)
[2019-04-02] MEDS ORDERED: cefTRIAXone 1 GM, Lidocaine 1% 2.1 ML IM ONE ×2 (04:44)
== END 2019-04-02 07:50 | disposition home or self-care (01) ==
LOC: JP.ED 03:35
DX: N39.0 Urinary tract infection, site not specified (principal); B02.9 Zoster without complications; I10 Essential (primary) hypertension; E78.00 Pure hypercholesterolemia, unspecified; F41.9 Anxiety disorder, unspecified; F32.9 Major depressive disorder, single episode, unspecified; K21.9 Gastro-esophageal reflux disease without esophagitis; Z79.82 Long term (current) use of aspirin; Z79.899 Other long term (current) drug therapy; Z88.2 Allergy status to sulfonamides; Z88.8 Allergy status to other drugs, medicaments and biological substances
CPT/HCPCS: 36415; 80053; 81001; 85025; 86140; 87086; 96372; 99284; J0696; J1170; J2001

== ENCOUNTER 2019-07-23 07:43 | Day surgery (SDC) | payer MEDICARE ==
[~2019-07-23 07:43] MED LIST: Lactated Ringers 1,000 ML IV SCH
[2019-07-23] MEDS ORDERED: Propofol 200 MG/20 ML SDV ONE (09:36)
[2019-07-23] MEDS ORDERED: fentaNYL 100 MCG/2 ML SDV ONE (09:36)
[2019-07-23 11:49] VITALS: BP 182/81
--- NOTE | 2019-07-24 09:46 | OR ---
DATE OF PROCEDURE: 07/23/2019 PREOPERATIVE DIAGNOSIS: Mcdonnell's esophagus. POSTOPERATIVE DIAGNOSIS: Mcdonnell's esophagus. PROCEDURE PERFORMED: Esophagogastroduodenoscopy with biopsy of gastroesophageal junction. SURGEON: Mauricio Gomes MD ANESTHESIA: IV anesthesia with monitored anesthesia care. INDICATION: This 79-year-old white female is referred for upper endoscopy because of Mcdonnell's esophagus. She underwent an endoscopy about a year ago, but no biopsies were obtained because she was on Plavix. She now is here for upper endoscopy with plan for biopsy. I counseled her for this, and she gave her informed consent to proceed. DESCRIPTION OF PROCEDURE: The patient was placed in the left lateral decubitus position. IV anesthesia was administered by the Anesthesia Service. Time-out was held. The flexible video Olympus upper endoscope was passed through her mouth, down her esophagus, and into her stomach. The scope was easily passed through the pylorus and into the duodenum, reaching its third portion. The scope was then slowly withdrawn examining the mucosa throughout. The duodenal mucosa appeared unremarkable. The scope was brought back through the pylorus and into the antrum. This appeared unremarkable. The scope was retroflexed. The proximal stomach appeared unremarkable. The scope was straightened and brought up to the GE junction. This was markedly abnormal with islands of gastric mucosa being proximal to the Z- line. The Z-line was not straight. We obtained multiple, totalling at least 6, biopsies of the gastroesophageal junction. The scope was then brought proximally through remainder of the esophagus, which otherwise appeared unremarkable and it was removed. She tolerated the procedure well. Mauricio Gomes MD /[id number]
== END 2019-07-23 11:40 | disposition home or self-care (01) ==
LOC: JP.SDS 07:43
PROVIDERS: ATTEND Surgery
DX: K22.70 Barrett's esophagus without dysplasia (principal); E78.5 Hyperlipidemia, unspecified; I10 Essential (primary) hypertension; K21.9 Gastro-esophageal reflux disease without esophagitis; I65.29 Occlusion and stenosis of unspecified carotid artery; I25.2 Old myocardial infarction; Z95.5 Presence of coronary angioplasty implant and graft
CPT/HCPCS: 43239; J2704; J3010; J7120

== ENCOUNTER 2019-09-01 20:54 | Emergency (ER) | payer MEDICARE ==
[2019-09-01 21:26] VITALS: BP 152/57; PULSE 57
[2019-09-01] MEDS ORDERED: Alum Hydrox/Mag Hydrox/Simeth 30 ML, Lidocaine 2% 15 ML PO ONE ×2 (21:34)
--- NOTE | 2019-09-01 22:55 | EDM.PDOC ---
ED HPI GENERAL MEDICAL PROBLEM - General Chief Complaint: Chest Pain Stated Complaint: NAUSEA Time Seen by Provider: 09/01/19 21:09 Source of Information: Reports: Patient History Limitations: Reports: No Limitations - History of Present Illness INITIAL COMMENTS - FREE TEXT/NARRATIVE: This lady is here in the emergency department with her who is being admitted for possible sepsis. This lady had gone out to the waiting room and her son gave her a cheeseburger. She was already feeling bad and then she took maybe 1 or 2 bites at the cheeseburger and then she became nauseated and I believe she vomited and tends complains of an epigastric pain. She does have a history of a Mcdonnell's esophagus. She also had a myocardial infarction and and January 2018. She was seen at [place]. She still feels a little bit of epigastric discomfort Middle Chest Pain Score (Numeric/FACES): 4 - Related Data Allergies Allergy/AdvReac Type Severity Reaction Status Date / Time celecoxib Allergy Cannot Verified 07/23/19 08:15 Remember hydrocodone Allergy Rash Verified 07/23/19 08:15 naproxen Allergy Hives Verified 07/23/19 08:15 Sulfa (Sulfonamide Allergy Vomiting Verified 07/23/19 08:15 Antibiotics) terfenadine [From Seldane] Allergy Hives Verified 07/23/19 08:15 Home Meds: Home Meds Ascorbic Acid [Vitamin C] 500 mg PO DAILY 05/14/14 [History] Aspirin 81 mg PO DAILY 05/14/14 [History] Calcium Carbonate/Vitamin D3 [Calcium 600-Vit D3 200 Tablet] 1 each PO DAILY [History] Multivitamin [Multi-Vitamin Daily] 1 each PO DAILY 05/14/14 [History] Pantoprazole Sodium 40 mg PO DAILY 07/21/17 [History] traZODone HCl [Trazodone HCl] 50 mg PO BEDTIME 07/21/17 [History] Docusate Sodium 100 mg PO BID PRN 02/14/18 [History] Gabapentin [Neurontin] 600 mg PO TID 02/14/18 [History] Melatonin 5 mg PO BEDTIME 02/14/18 [History] Polyethylene Glycol 3350 [MiraLAX] 1 packet PO BID 02/14/18 [History] Losartan [Cozaar] 100 mg PO DAILY 02/19/18 [History] Metoprolol Tartrate 12.5 mg PO DAILY 02/19/18 [History] Nitroglycerin 1 tab SL ASDIRECTED 02/19/18 [History] Clopidogrel [Plavix] 75 mg PO DAILY 06/27/18 [History] Carbidopa/Levodopa [Carbidopa-Levo ER 25-100] 1 tab PO DAILY 04/02/19 [History] Acetaminophen 650 mg PO BID PRN 07/23/19 [History] atorvaSTATin [Lipitor] 80 mg PO BEDTIME 07/23/19 [History] Calcium Carbonate [Tums] 1 tab PO DAILY 07/31/19 [History] Cholecalciferol (Vitamin D3) [Vitamin D3] 1,000 unit PO DAILY 07/31/19 [History] Diclofenac Sodium 1 applic TOP QID 07/31/19 [History] Loratadine 10 mg PO DAILY 07/31/19 [History] Past Medical History HEENT History: Reports: Impaired Vision Other HEENT History: wears glasses Cardiovascular History: Reports: CAD, High Cholesterol, Hypertension, [place], Stents Respiratory History: Reports: None Gastrointestinal History: Reports: Chronic Constipation, GERD, Other (See Below) Other Gastrointestinal History: Mcdonnell's Esophagus Genitourinary History: Reports: Urinary Incontinence, Other (See Below) Other Genitourinary History: "trouble emptying bladder" 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: Musculoskeletal History: Reports: Arthritis, Back Pain, Chronic, RA Other Musculoskeletal History: left knee and shoulder pain Neurological History: Reports: Migraines, Parkinson's, TIA Psychiatric History: Reports: Anxiety, Depression Endocrine/Metabolic History: Reports: None Hematologic History: Reports: None Immunologic History: Reports: None Oncologic (Cancer) History: Reports: None Dermatologic History: Reports: None - Infectious Disease History Infectious Disease History: Reports: Chicken Pox, Measles, Shingles - Past Surgical History Head Surgeries/Procedures: Reports: None HEENT Surgical History: Reports: None Cardiovascular Surgical History: Reports: Coronary Artery Stent GI Surgical History: Reports: Colonoscopy, EGD Female Surgical History: Reports: Hysterectomy Neurological Surgical History: Reports: None Musculoskeletal Surgical History: Reports: Knee Replacement Other Musculoskeletal Surgeries/Procedures:: right knee replacement Dermatological Surgical History: Reports: None Social & Family History - Family History Family Medical History: Noncontributory - Tobacco Use Smoking Status *Q: Former Smoker Years of Tobacco use: 1 Used Tobacco, but Quit: Yes Month/Year Tobacco Last Used: 1979 - Caffeine Use Caffeine Use: Reports: Coffee Caffeine Use Comment: 2 cups of coffee per day - Recreational Drug Use Recreational Drug Use: No ED ROS GENERAL - Review of Systems Review Of Systems: ROS reveals no pertinent complaints other than HPI. ED EXAM, GENERAL - Physical Exam Exam: See Below Exam Limited By: No Limitations General Appearance: Alert, WD/WN, No Apparent Distress Eye Exam: Bilateral Eye: Normal Inspection Throat/Mouth: Normal Oropharynx Head: Atraumatic Neck: Normal Inspection Respiratory/Chest: Lungs Clear, Normal Breath Sounds Cardiovascular: Regular Rate, Rhythm, Systolic Murmur (12/01) Peripheral Pulses: 2+: Radial (L), Radial (R) GI/Abdominal: Soft, Non-Tender Extremities: Normal Inspection Neurological: Alert, Oriented Course - Vital Signs Last Recorded V/S: Last Vital Signs Temp 36.7 C 09/01/19 21:09 Pulse 57 L 09/01/19 21:09 Resp 18 09/01/19 21:09 BP 152/57 H 09/01/19 21:09 Pulse Ox 94 L 09/01/19 21:09 - Orders/Labs/Meds Orders: Active Orders 24 hr Category Date Time Status EKG Documentation Completion [RC] ASDIRECTED Care 09/01/19 21:34 Active EKG 12 Lead [EK] Urgent Ther 09/01/19 21:34 Ordered Labs: Laboratory Tests 09/01/19 09/01/19 Range/Units 21:46 21:46 WBC 6.2 (4.5-11.0) K/uL RBC 3.74 (3.30-5.50) M/uL Hgb 11.3 L (12.0-15.0) g/dL Hct 35.3 L (36.0-48.0) % MCV 94 (80-98) fL MCH 30 (27-31) pg MCHC 32 (32-36) % Plt Count 265 (150-400) K/uL Neut % (Auto) 59 (36-66) % Lymph % (Auto) 27 (24-44) % [place] % (Auto) 8 H (2-6) % Eos % (Auto) 4 (2-4) % Baso % (Auto) 1 (0-1) % Sodium 138 L (140-148) mmol/L Potassium 3.7 (3.6-5.2) mmol/L Chloride 102 (100-108) mmol/L Carbon Dioxide 27 (21-32) mmol/L Anion Gap 12.7 (5.0-14.0) mmol/L BUN 11 (7-18) mg/dL Creatinine 0.7 (0.6-1.0) mg/dL Est Cr Clr Drug Dosing TNP Estimated GFR (MDRD) > 60 (>60) Glucose 124 H (74-106) mg/dL Calcium 8.4 L (8.5-10.1) mg/dL Total Bilirubin 0.4 (0.2-1.0) mg/dL AST 20 (15-37) U/L ALT 11 L (12-78) U/L Alkaline Phosphatase 84 (46-116) U/L Troponin I 0.017 (0.000-0.056) ng/mL Total Protein 6.3 L (6.4-8.2) g/dL Albumin 3.4 (3.4-5.0) g/dL Globulin 2.9 (2.3-3.5) g/dL Albumin/Globulin Ratio 1.2 (1.2-2.2) Meds: Medications Discontinued Medications Generic Name Dose Route Start Last Admin Trade Name Freq PRN Reason Stop Dose Admin Al Hydroxide/Mg Hydroxide 30 0 ml 09/01/19 21:34 09/01/19 22:01 ml/ Lidocaine HCl 15 ml PO 09/01/19 21:35 45 ml ONETIME ONE Administration - Re-Assessments/Exams Free Text/Narrative Re-Assessment/Exam: 09/01/19 22:59 EKG shows sinus rhythm at 53 bpm probable LVH by multiple voltage criteria normal ST and T waves. Patient received a GI cocktail and this gave total relief within a very short time. Troponin is negative and I explained to the lady that after an ID it takes about 3 hours or so for the troponin to become elevated so based on the labs I can't be certain that she did not have an ID. However she doesn't want to wait another 2 hours to have a repeat troponin and I have a very low index of suspicion in this lady so I don't object to her going home. Discussed use of a proton pump inhibitor I believe she's taking pantoprazole she could also take omeprazole instead and she should use an antacid such as Tums return to the ER at any time if needed Departure - Departure Time of Disposition: 22:51 Disposition: Home, Self-Care 01 Condition: Fair Clinical Impression: Reflux esophagitis Referrals: Hiren Jorge MD [Primary Care Provider] - Forms: ED Department Discharge Additional Instructions: Most likely you are pain and nausea was caused by reflux esophagitis. This is the same thing that causes a Mcdonnell's esophagus. We show that you're taking pantoprazole 40 mg per day. That is an acid blocking medication and you should continue that. This is very similar to omeprazole. Use an antacid such as Tums as needed. Your EKG was normal and we did a test called troponin which is elevated in people who have a heart attack but it takes a few hours. Normally what we do is repeat the test after 3 hours if the first one is negative. However in your case I have very low suspicion of a heart attack so I am comfortable not repeating the test. Otherwise you would have to stay here for another 2 hours while we waited to repeat that test. Return to the ER at any time if needed - My Orders Last 24 Hours: My Active Orders 09/01/19 21:34 EKG Documentation Completion [RC] ASDIRECTED EKG 12 Lead [EK] Urgent - Assessment/Plan Last 24 Hours: My Active Orders 09/01/19 21:34 EKG Documentation Completion [RC] ASDIRECTED EKG 12 Lead [EK] Urgent
== END 2019-09-01 23:24 | disposition home or self-care (01) ==
LOC: JP.ED 20:54
DX: K21.0 Gastro-esophageal reflux disease with esophagitis (principal); I25.2 Old myocardial infarction; I25.10 Atherosclerotic heart disease of native coronary artery without angina pectoris; I10 Essential (primary) hypertension; E78.5 Hyperlipidemia, unspecified; K21.9 Gastro-esophageal reflux disease without esophagitis; G20 Parkinson's disease; F32.9 Major depressive disorder, single episode, unspecified; F41.9 Anxiety disorder, unspecified; Z95.5 Presence of coronary angioplasty implant and graft; Z88.6 Allergy status to analgesic agent; Z88.5 Allergy status to narcotic agent; Z88.2 Allergy status to sulfonamides; Z88.8 Allergy status to other drugs, medicaments and biological substances; Z79.82 Long term (current) use of aspirin; Z79.01 Long term (current) use of anticoagulants; Z86.73 Personal history of transient ischemic attack (TIA), and cerebral infarction without residual deficits; Z87.891 Personal history of nicotine dependence
CPT/HCPCS: 36415; 80053; 84484; 85025; 93005; 99285; A9270; 99283

== ENCOUNTER 2019-10-27 07:46 | Inpatient (IN) | payer MEDICARE ==
[2019-10-27] MEDS ORDERED: Lactated Ringers 1,000 ML IV SCH (08:30)
[2019-10-27] MEDS: Nozin Nasal Sanitizer NASBOTH SCH ×2 (09:09→20:54)
[2019-10-27] MEDS ORDERED: TRANEXAMIC ACID IV ONE ×2 (09:30→14:30)
[2019-10-27] MEDS ORDERED: SODIUM CHLORIDE 0.9% IV ONE ×2 (09:30→14:30)
[2019-10-27] MEDS ORDERED: ceFAZolin 2 GM in Premix Bag 1 BAG IV ONE (09:30)
[2019-10-27] MEDS ORDERED: ceFAZolin 2 GM in Sodium Chloride 0.9% 50 ML IV ONE (09:30)
[2019-10-27] MEDS ORDERED: Povidone-Iodine 10% Soln 118.25 ML Bottle ONE (10:33)
[2019-10-27] MEDS ORDERED: Midazolam 1 MG/ML 2 ML SDV ONE (10:37)
[2019-10-27] MEDS ORDERED: fentaNYL 100 MCG/2 ML SDV ONE (10:37)
[2019-10-27] MEDS ORDERED: Propofol 200 MG/20 ML SDV ONE (10:38)
[2019-10-27] MEDS ORDERED: TRANEXAMIC ACID IV PRN (11:30)
[2019-10-27] MEDS ORDERED: SODIUM CHLORIDE 0.9% IV PRN (11:30)
[2019-10-27] MEDS ORDERED: Lactated Ringers 1,000 ML ONE (12:45)
[2019-10-27] MEDS ORDERED: Ondansetron 4 MG/2 ML SDV IVPUSH PRN (12:52)
[2019-10-27] MEDS ORDERED: LORazepam 0.5 MG Tab PO PRN (12:59)
[2019-10-27] MEDS ORDERED: Calcium Carbonate 500 MG Tab.Chew PO PRN (12:59)
[2019-10-27] MEDS ORDERED: Polyethylene Glycol 3350 Powder 17 GM Packet PO PRN (12:59)
[2019-10-27] MEDS ORDERED: Nitroglycerin 0.4 MG Tab.SL SL PRN (13:00)
[2019-10-27] MEDS ORDERED: ESTRADIOL VAG SCH (13:00)
--- NOTE | 2019-10-27 14:27 | CR ---
Knee 1V or 2V Lt: 10/27/2019 1:30 PM INDICATION: Knee arthroplasty COMPARISON: 07/31/2019 FINDINGS/IMPRESSION: Interval changes of left total knee arthroplasty are present without apparent immediate hardware complication or periprosthetic fracture. Expected postsurgical changes are present, including subcutaneous and intra-articular air.
[2019-10-27] MEDS: Acetaminophen/oxyCODONE 325-5 MG Tab PO PRN ×3 (14:50→19:24)
[2019-10-27] MEDS: Gabapentin 300 MG Cap PO SCH ×2 (15:14→20:57)
[2019-10-27] MEDS: Morphine 2 MG/ML Syringe IVPUSH PRN ×2 (16:07→17:13)
[2019-10-27] MEDS: ceFAZolin 1 GM in Premix Bag 1 BAG IV SCH (16:07)
[2019-10-27] MEDS: Docusate Sodium 100 MG Cap PO SCH (20:55)
[2019-10-27] MEDS: Metoprolol Tartrate 25 MG Tab PO SCH (20:56)
[2019-10-27] MEDS: atorvaSTATin 20 MG Tab PO SCH (20:56)
[2019-10-27] MEDS: Melatonin 3 MG Tab PO SCH (20:57)
[2019-10-27] MEDS: traZODone 50 MG Tab PO SCH (20:58)
[2019-10-27] MEDS: Sodium Chloride 0.9% 1,000 ML IV SCH (22:25)
[2019-10-28] MEDS: ceFAZolin 1 GM in Premix Bag 1 BAG IV SCH ×2 (01:04→09:54)
[2019-10-28] MEDS: Acetaminophen/oxyCODONE 325-5 MG Tab PO PRN ×5 (01:10→20:06)
[2019-10-28] MEDS: Sodium Chloride 0.9% 1,000 ML IV SCH ×2 (07:09→20:00)
[2019-10-28] MEDS: Pantoprazole 40 MG Tab.CR PO SCH (07:11)
[2019-10-28] MEDS: Nozin Nasal Sanitizer NASBOTH SCH ×2 (09:57→20:09)
[2019-10-28] MEDS: Docusate Sodium 100 MG Cap PO SCH ×2 (09:57→20:11)
[2019-10-28] MEDS: Loratadine 10 MG Tab PO SCH (09:57)
[2019-10-28] MEDS: Sertraline 25 MG Tab PO SCH (09:57)
[2019-10-28] MEDS: Gabapentin 300 MG Cap PO SCH ×3 (09:58→20:09)
[2019-10-28] MEDS: Clopidogrel 75 MG Tab PO SCH (09:58)
[2019-10-28] MEDS: Multivitamins with Iron/Calcium/Folic Acid/Minerals Tab PO SCH (09:59)
[2019-10-28] MEDS: Losartan 50 MG Tab PO SCH (13:34)
[2019-10-28] MEDS: Metoprolol Tartrate 25 MG Tab PO SCH ×2 (13:34→20:10)
[2019-10-28] MEDS ORDERED: Sodium Chloride 0.9% 1,000 ML IV SCH (14:15)
[2019-10-28] MEDS: Melatonin 3 MG Tab PO SCH (20:09)
[2019-10-28] MEDS: atorvaSTATin 20 MG Tab PO SCH (20:09)
[2019-10-28] MEDS: traZODone 50 MG Tab PO SCH (20:11)
[2019-10-29] MEDS: Sodium Chloride 0.9% 1,000 ML IV SCH ×2 (03:06→14:11)
[2019-10-29] MEDS: Acetaminophen/oxyCODONE 325-5 MG Tab PO PRN ×3 (05:39→18:26)
[2019-10-29] MEDS: Gabapentin 300 MG Cap PO SCH ×3 (08:22→21:06)
[2019-10-29] MEDS: Nozin Nasal Sanitizer NASBOTH SCH ×2 (08:22→21:04)
[2019-10-29] MEDS: Multivitamins with Iron/Calcium/Folic Acid/Minerals Tab PO SCH (08:22)
[2019-10-29] MEDS: Sertraline 25 MG Tab PO SCH (08:22)
[2019-10-29] MEDS: Loratadine 10 MG Tab PO SCH (08:22)
[2019-10-29] MEDS: Docusate Sodium 100 MG Cap PO SCH ×2 (08:22→21:05)
[2019-10-29] MEDS: Pantoprazole 40 MG Tab.CR PO SCH (08:22)
[2019-10-29] MEDS: Clopidogrel 75 MG Tab PO SCH (08:23)
[2019-10-29] MEDS: Magnesium Hydroxide 400 MG/5 ML Susp 30 ML Cup PO PRN ×2 (08:34→19:50)
[2019-10-29] MEDS: traMADol 50 MG Tab PO PRN (08:34)
--- NOTE | 2019-10-29 12:34 | PCM.SURGPN ---
- General Info Date of Service: 10/28/19 Date of Surgery/Procedure: 10/27/19 POD#: 1 Functional Status: Reports: Pain Controlled, Tolerating Diet - Review of Systems General: Reports: No Symptoms HEENT: Reports: No Symptoms Pulmonary: Reports: No Symptoms Cardiovascular: Reports: No Symptoms Gastrointestinal: Reports: No Symptoms Genitourinary: Reports: No Symptoms Musculoskeletal: Reports: Leg Pain Skin: Reports: No Symptoms Neurological: Reports: No Symptoms Psychiatric: Reports: No Symptoms - Patient Data Vitals - Most Recent: Last Vital Signs Temp 36.8 C 10/29/19 11:18 Pulse 68 10/29/19 11:18 Resp 18 10/29/19 11:18 BP 126/42 L 10/29/19 11:18 Pulse Ox 91 L 10/29/19 11:18 Weight - Most Recent: 52.163 kg I&O - Last 24 Hours: Intake & Output 10/28/19 10/29/19 10/29/19 22:59 06:59 14:59 Intake Total 1709 1460 296 Output Total 400 700 Balance 1309 760 296 Med Orders - Current: Current Medications Atorvastatin Calcium (Lipitor) 80 mg PO BEDTIME [facility] Last Admin: 10/28/19 20:09 Dose: 80 mg Bandage/Support Products ( Nasal Hydrogen Power Plant Manager) 1 applic NASBOTH BID [facility] Last Admin: 10/29/19 08:22 Dose: 1 applic Calcium Carbonate/Glycine (Tums) 500 mg PO DAILY PRN PRN Reason: acid reflux Clopidogrel Bisulfate (Plavix) 75 mg PO DAILY [facility] Last Admin: 10/29/19 08:23 Dose: 75 mg Docusate Sodium (Colace) 100 mg PO BID [facility] Last Admin: 10/29/19 08:22 Dose: 100 mg Gabapentin (Neurontin) 600 mg PO TID [facility] Last Admin: 10/29/19 08:22 Dose: 600 mg Sodium Chloride (Normal Saline) 1,000 mls @ 125 mls/hr IV ASDIRECTED [facility] Last Admin: 10/29/19 03:06 Dose: 125 mls/hr Loratadine (Claritin) 10 mg PO DAILY [facility] Last Admin: 10/29/19 08:22 Dose: 10 mg Lorazepam (Ativan) 0.5 mg PO Q6H PRN PRN Reason: Anxiety Losartan Potassium (Cozaar) 100 mg PO DAILY [facility] Last Admin: 10/28/19 13:34 Dose: Not Given Magnesium Hydroxide (Milk Of Magnesia) 30 ml PO BID PRN PRN Reason: Constipation Last Admin: 10/29/19 08:34 Dose: 30 ml Melatonin (Melatonin) 6 mg PO BEDTIME [facility] Last Admin: 10/28/19 20:09 Dose: 6 mg Metoprolol Tartrate (Lopressor) 12.5 mg PO BID [facility] Last Admin: 10/28/19 20:10 Dose: 12.5 mg Morphine Sulfate (Morphine) 2 mg IVPUSH Q1H PRN PRN Reason: Breakthrough Pain Last Admin: 10/27/19 17:13 Dose: 2 mg Multivitamins/Minerals (Thera M Plus) 1 tab PO DAILY [facility] Last Admin: 10/29/19 08:22 Dose: 1 tab Nitroglycerin (Nitrostat) 0.4 mg SL ASDIRECTED PRN PRN Reason: Chest Pain Ondansetron HCl (Zofran) 4 mg IVPUSH Q6H PRN PRN Reason: Nausea/Vomiting Oxycodone/Acetaminophen (Percocet 325-5 Mg) 1 - 2 tab PO Q4H PRN PRN Reason: Pain Last Admin: 10/29/19 05:39 Dose: 2 tab Pantoprazole Sodium (Protonix) 40 mg PO DAILY@0730 [facility] Last Admin: 10/29/19 08:22 Dose: 40 mg Polyethylene Glycol (Miralax) 17 gm PO DAILY PRN PRN Reason: Constipation Sertraline HCl (Zoloft) 25 mg PO DAILY [facility] Last Admin: 10/29/19 08:22 Dose: 25 mg Tramadol HCl (Ultram) 50 mg PO Q6H PRN PRN Reason: Pain (mild 1-3) Last Admin: 10/29/19 08:34 Dose: 50 mg Trazodone HCl (Trazodone) 50 mg PO BEDTIME [facility] Last Admin: 10/28/19 20:11 Dose: 50 mg Discontinued Medications Fentanyl (Sublimaze) Confirm Administered Dose 100 mcg .ROUTE .STK-MED ONE Stop: 10/27/19 10:38 Lactated Ringer's (Ringers, Lactated) 1,000 mls @ 75 mls/hr IV ASDIRECTED [facility] Last Admin: 10/27/19 09:09 Dose: 75 mls/hr Cefazolin Sodium 2 gm/ Sodium (Chloride) 50 mls @ 100 mls/hr IV ONETIME ONE Stop: 10/27/19 09:59 Last Admin: 10/27/19 11:09 Dose: 100 mls/hr Tranexamic Acid 520 mg/ Sodium (Chloride) 55.2 mls @ 220.8 mls/hr IV ONETIME ONE Stop: 10/27/19 09:44 Last Admin: 10/27/19 11:50 Dose: 220.8 mls/hr Lactated Ringer's (Ringers, Lactated) Confirm Administered Dose 1,000 mls @ as directed .ROUTE .STK-MED ONE Stop: 10/27/19 12:46 Cefazolin Sodium/Dextrose 1 gm (/ Premix) 50 mls @ 100 mls/hr IV Q8H [facility] Stop: 10/28/19 09:29 Last Admin: 10/28/19 09:54 Dose: 100 mls/hr Sodium Chloride (Normal Saline) 1,000 mls @ 500 mls/hr IV ASDIRECTED [facility] Stop: 10/27/19 14:01 Last Admin: 10/28/19 07:09 Dose: 125 mls/hr Tranexamic Acid 520 mg/ Sodium (Chloride) 55.2 mls @ 220.8 mls/hr IV ONETIME ONE Stop: 10/27/19 14:44 Last Admin: 10/27/19 14:37 Dose: 220.8 mls/hr Sodium Chloride (Normal Saline) 1,000 mls @ 500 mls/hr IV BOLUS [facility] Stop: 10/28/19 15:15 Last Admin: 10/28/19 13:40 Dose: 500 mls/hr Midazolam HCl (Versed 1 Mg/Ml) Confirm Administered Dose 2 mg .ROUTE .STK-MED ONE Stop: 10/27/19 10:38 Povidone Iodine (Betadine 10% Soln) Confirm Administered Dose 1 ml .ROUTE .STK- MED ONE Stop: 10/27/19 10:34 Last Admin: 10/27/19 11:59 Dose: 15 ml Propofol (Diprivan 20 Ml) Confirm Administered Dose 200 mg .ROUTE .STK-MED ONE Stop: 10/27/19 10:39 - Exam Wound/Incisions: Dressing Dry and Intact General: Alert, Oriented HEENT: Pupils Equal Neck: Supple Lungs: Clear to Auscultation, Normal Respiratory Effort Cardiovascular: Regular Rate, Regular Rhythm GI/Abdominal Exam: Normal Bowel Sounds, Soft, Non-Tender Extremities: Joint Swelling, Limited Range of Motion Skin: Warm, Dry Neurological: No New Focal Deficit Psy/Mental Status: Alert, Normal Affect, Normal Mood - Problem List & Annotations (1) Status post total left knee replacement SNOMED Code(s): 0333920647466, 2116984538696 Code(s): Z96.652 - PRESENCE OF LEFT ARTIFICIAL KNEE JOINT Status: Acute Current Visit: Yes - Problem List Review Problem List Initiated/Reviewed/Updated: Yes - My Orders Last 24 Hours: Active Orders 24 hr Category Date Time Status Admission Status [Patient Status] [ADT] Routine ADT 10/28/19 14:19 Active Communication Order [RC] ROUTINE Care 10/28/19 13:08 Active Sodium Chloride 0.9% [Normal Saline] 1,000 ml Med 10/28/19 14:15 Active IV ASDIRECTED Medication Orders Atorvastatin Calcium (Lipitor) 80 mg PO BEDTIME [facility] Last Admin: 10/28/19 20:09 Dose: 80 mg Admin: 10/27/19 20:56 Dose: 80 mg Bandage/Support Products ( Nasal Hydrogen Power Plant Manager) 1 applic NASBOTH BID [facility] Last Admin: 10/29/19 08:22 Dose: 1 applic Admin: 10/28/19 20:09 Dose: 1 applic Admin: 10/28/19 09:57 Dose: 1 applic Admin: 10/27/19 20:54 Dose: 1 applic Admin: 10/27/19 09:09 Dose: 1 applic Calcium Carbonate/Glycine (Tums) 500 mg PO DAILY PRN PRN Reason: acid reflux Clopidogrel Bisulfate (Plavix) 75 mg PO DAILY [facility] Last Admin: 10/29/19 08:23 Dose: 75 mg Admin: 10/28/19 09:58 Dose: 75 mg Docusate Sodium (Colace) 100 mg PO BID [facility] Last Admin: 10/29/19 08:22 Dose: 100 mg Admin: 10/28/19 20:11 Dose: 100 mg Admin: 10/28/19 09:57 Dose: 100 mg Admin: 10/27/19 20:55 Dose: 100 mg Gabapentin (Neurontin) 600 mg PO TID [facility] Last Admin: 10/29/19 08:22 Dose: 600 mg Admin: 10/28/19 20:09 Dose: 600 mg Admin: 10/28/19 15:07 Dose: 600 mg Admin: 10/28/19 09:58 Dose: 600 mg Admin: 10/27/19 20:57 Dose: 600 mg Admin: 10/27/19 15:14 Dose: 600 mg Sodium Chloride (Normal Saline) 1,000 mls @ 125 mls/hr IV ASDIRECTED [facility] Last Admin: 10/29/19 03:06 Dose: 125 mls/hr Infusion: 10/29/19 03:06 Dose: 125 mls/hr Admin: 10/28/19 20:00 Dose: 125 mls/hr Loratadine (Claritin) 10 mg PO DAILY [facility] Last Admin: 10/29/19 08:22 Dose: 10 mg Admin: 10/28/19 09:57 Dose: 10 mg Lorazepam (Ativan) 0.5 mg PO Q6H PRN PRN Reason: Anxiety Losartan Potassium (Cozaar) 100 mg PO DAILY [facility] Last Admin: 10/28/19 13:34 Dose: Magnesium Hydroxide (Milk Of Magnesia) 30 ml PO BID PRN PRN Reason: Constipation Last Admin: 10/29/19 08:34 Dose: 30 ml Melatonin (Melatonin) 6 mg PO BEDTIME [facility] Last Admin: 10/28/19 20:09 Dose: 6 mg Admin: 10/27/19 20:57 Dose: 6 mg Metoprolol Tartrate (Lopressor) 12.5 mg PO BID [facility] Last Admin: 10/28/19 20:10 Dose: 12.5 mg Admin: 10/28/19 13:34 Dose: Not Given Admin: 10/27/19 20:56 Dose: 12.5 mg Morphine Sulfate (Morphine) 2 mg IVPUSH Q1H PRN PRN Reason: Breakthrough Pain Last Admin: 10/27/19 17:13 Dose: 2 mg Admin: 10/27/19 16:07 Dose: 2 mg Multivitamins/Minerals (Thera M Plus) 1 tab PO DAILY [facility] Last Admin: 10/29/19 08:22 Dose: 1 tab Admin: 10/28/19 09:59 Dose: 1 tab Nitroglycerin (Nitrostat) 0.4 mg SL ASDIRECTED PRN PRN Reason: Chest Pain Ondansetron HCl (Zofran) 4 mg IVPUSH Q6H PRN PRN Reason: Nausea/Vomiting Oxycodone/Acetaminophen (Percocet 325-5 Mg) 1 - 2 tab PO Q4H PRN PRN Reason: Pain Last Admin: 10/29/19 05:39 Dose: 2 tab Admin: 10/28/19 20:06 Dose: 2 tab Admin: 10/28/19 15:08 Dose: 2 tab Admin: 10/28/19 11:27 Dose: 2 tab Admin: 10/28/19 07:19 Dose: 2 tab Admin: 10/28/19 01:10 Dose: 2 tab Admin: 10/27/19 19:24 Dose: 2 tab Admin: 10/27/19 15:14 Dose: 1 tab Admin: 10/27/19 14:50 Dose: 1 tab Pantoprazole Sodium (Protonix) 40 mg PO DAILY@0730 [facility] Last Admin: 10/29/19 08:22 Dose: 40 mg Admin: 10/28/19 07:11 Dose: 40 mg Polyethylene Glycol (Miralax) 17 gm PO DAILY PRN PRN Reason: Constipation Sertraline HCl (Zoloft) 25 mg PO DAILY [facility] Last Admin: 10/29/19 08:22 Dose: 25 mg Admin: 10/28/19 09:57 Dose: 25 mg Tramadol HCl (Ultram) 50 mg PO Q6H PRN PRN Reason: Pain (mild 1-3) Last Admin: 10/29/19 08:34 Dose: 50 mg Trazodone HCl (Trazodone) 50 mg PO BEDTIME [facility] Last Admin: 10/28/19 20:11 Dose: 50 mg Admin: 10/27/19 20:58 Dose: 50 mg - Assessment Assessment (Free Text/Narrative):: Tolerated procedure well, slightly hypotensive, H/H ok, has not been up much - Plan Plan (Free Text/Narrative):: Hold BP meds, IV bolus, try PT again later today
--- NOTE | 2019-10-29 12:39 | PCM.SURGPN ---
- General Info Date of Service: 10/29/19 Date of Surgery/Procedure: 10/27/19 POD#: 2 Functional Status: Reports: Pain Controlled, Tolerating Diet - Review of Systems General: Reports: No Symptoms HEENT: Reports: No Symptoms Pulmonary: Reports: Wheezing Cardiovascular: Reports: No Symptoms Gastrointestinal: Reports: No Symptoms Genitourinary: Reports: No Symptoms Musculoskeletal: Reports: Leg Pain, Joint Swelling Skin: Reports: No Symptoms Neurological: Reports: No Symptoms Psychiatric: Reports: No Symptoms - Patient Data Vitals - Most Recent: Last Vital Signs Temp 36.8 C 10/29/19 11:18 Pulse 68 10/29/19 11:18 Resp 18 10/29/19 11:18 BP 126/42 L 10/29/19 11:18 Pulse Ox 91 L 10/29/19 11:18 Weight - Most Recent: 52.163 kg I&O - Last 24 Hours: Intake & Output 10/28/19 10/29/19 10/29/19 22:59 06:59 14:59 Intake Total 1709 1460 296 Output Total 400 700 Balance 1309 760 296 Med Orders - Current: Current Medications Atorvastatin Calcium (Lipitor) 80 mg PO BEDTIME [facility] Last Admin: 10/28/19 20:09 Dose: 80 mg Bandage/Support Products ( Nasal Skill Training Program Coordinator) 1 applic NASBOTH BID [facility] Last Admin: 10/29/19 08:22 Dose: 1 applic Calcium Carbonate/Glycine (Tums) 500 mg PO DAILY PRN PRN Reason: acid reflux Clopidogrel Bisulfate (Plavix) 75 mg PO DAILY [facility] Last Admin: 10/29/19 08:23 Dose: 75 mg Docusate Sodium (Colace) 100 mg PO BID [facility] Last Admin: 10/29/19 08:22 Dose: 100 mg Gabapentin (Neurontin) 600 mg PO TID [facility] Last Admin: 10/29/19 08:22 Dose: 600 mg Sodium Chloride (Normal Saline) 1,000 mls @ 125 mls/hr IV ASDIRECTED [facility] Last Admin: 10/29/19 03:06 Dose: 125 mls/hr Loratadine (Claritin) 10 mg PO DAILY [facility] Last Admin: 10/29/19 08:22 Dose: 10 mg Lorazepam (Ativan) 0.5 mg PO Q6H PRN PRN Reason: Anxiety Losartan Potassium (Cozaar) 100 mg PO DAILY [facility] Last Admin: 10/28/19 13:34 Dose: Not Given Magnesium Hydroxide (Milk Of Magnesia) 30 ml PO BID PRN PRN Reason: Constipation Last Admin: 10/29/19 08:34 Dose: 30 ml Melatonin (Melatonin) 6 mg PO BEDTIME [facility] Last Admin: 10/28/19 20:09 Dose: 6 mg Metoprolol Tartrate (Lopressor) 12.5 mg PO BID [facility] Last Admin: 10/28/19 20:10 Dose: 12.5 mg Morphine Sulfate (Morphine) 2 mg IVPUSH Q1H PRN PRN Reason: Breakthrough Pain Last Admin: 10/27/19 17:13 Dose: 2 mg Multivitamins/Minerals (Thera M Plus) 1 tab PO DAILY [facility] Last Admin: 10/29/19 08:22 Dose: 1 tab Nitroglycerin (Nitrostat) 0.4 mg SL ASDIRECTED PRN PRN Reason: Chest Pain Ondansetron HCl (Zofran) 4 mg IVPUSH Q6H PRN PRN Reason: Nausea/Vomiting Oxycodone/Acetaminophen (Percocet 325-5 Mg) 1 - 2 tab PO Q4H PRN PRN Reason: Pain Last Admin: 10/29/19 05:39 Dose: 2 tab Pantoprazole Sodium (Protonix) 40 mg PO DAILY@0730 [facility] Last Admin: 10/29/19 08:22 Dose: 40 mg Polyethylene Glycol (Miralax) 17 gm PO DAILY PRN PRN Reason: Constipation Sertraline HCl (Zoloft) 25 mg PO DAILY [facility] Last Admin: 10/29/19 08:22 Dose: 25 mg Tramadol HCl (Ultram) 50 mg PO Q6H PRN PRN Reason: Pain (mild 1-3) Last Admin: 10/29/19 08:34 Dose: 50 mg Trazodone HCl (Trazodone) 50 mg PO BEDTIME [facility] Last Admin: 10/28/19 20:11 Dose: 50 mg Discontinued Medications Fentanyl (Sublimaze) Confirm Administered Dose 100 mcg .ROUTE .STK-MED ONE Stop: 10/27/19 10:38 Lactated Ringer's (Ringers, Lactated) 1,000 mls @ 75 mls/hr IV ASDIRECTED [facility] Last Admin: 10/27/19 09:09 Dose: 75 mls/hr Cefazolin Sodium 2 gm/ Sodium (Chloride) 50 mls @ 100 mls/hr IV ONETIME ONE Stop: 10/27/19 09:59 Last Admin: 10/27/19 11:09 Dose: 100 mls/hr Tranexamic Acid 520 mg/ Sodium (Chloride) 55.2 mls @ 220.8 mls/hr IV ONETIME ONE Stop: 10/27/19 09:44 Last Admin: 10/27/19 11:50 Dose: 220.8 mls/hr Lactated Ringer's (Ringers, Lactated) Confirm Administered Dose 1,000 mls @ as directed .ROUTE .STK-MED ONE Stop: 10/27/19 12:46 Cefazolin Sodium/Dextrose 1 gm (/ Premix) 50 mls @ 100 mls/hr IV Q8H [facility] Stop: 10/28/19 09:29 Last Admin: 10/28/19 09:54 Dose: 100 mls/hr Sodium Chloride (Normal Saline) 1,000 mls @ 500 mls/hr IV ASDIRECTED [facility] Stop: 10/27/19 14:01 Last Admin: 10/28/19 07:09 Dose: 125 mls/hr Tranexamic Acid 520 mg/ Sodium (Chloride) 55.2 mls @ 220.8 mls/hr IV ONETIME ONE Stop: 10/27/19 14:44 Last Admin: 10/27/19 14:37 Dose: 220.8 mls/hr Sodium Chloride (Normal Saline) 1,000 mls @ 500 mls/hr IV BOLUS [facility] Stop: 10/28/19 15:15 Last Admin: 10/28/19 13:40 Dose: 500 mls/hr Midazolam HCl (Versed 1 Mg/Ml) Confirm Administered Dose 2 mg .ROUTE .STK-MED ONE Stop: 10/27/19 10:38 Povidone Iodine (Betadine 10% Soln) Confirm Administered Dose 1 ml .ROUTE .STK- MED ONE Stop: 10/27/19 10:34 Last Admin: 10/27/19 11:59 Dose: 15 ml Propofol (Diprivan 20 Ml) Confirm Administered Dose 200 mg .ROUTE .STK-MED ONE Stop: 10/27/19 10:39 - Exam Wound/Incisions: Healing Well, No Drainage General: Alert, Oriented HEENT: Pupils Equal Neck: Supple Lungs: Clear to Auscultation, Other (decreased effort) Cardiovascular: Regular Rate, Regular Rhythm GI/Abdominal Exam: Normal Bowel Sounds, Soft, Non-Tender Extremities: Joint Swelling, Limited Range of Motion Skin: Warm, Dry, Intact Neurological: No New Focal Deficit Psy/Mental Status: Alert, Normal Affect, Normal Mood - Problem List & Annotations (1) Status post total left knee replacement SNOMED Code(s): 8512997643035, 2994868835319 Code(s): Z96.652 - PRESENCE OF LEFT ARTIFICIAL KNEE JOINT Status: Acute Current Visit: Yes - Problem List Review Problem List Initiated/Reviewed/Updated: Yes - My Orders Last 24 Hours: Active Orders 24 hr Category Date Time Status Admission Status [Patient Status] [ADT] Routine ADT 10/28/19 14:19 Active Communication Order [RC] ROUTINE Care 10/28/19 13:08 Active Sodium Chloride 0.9% [Normal Saline] 1,000 ml Med 10/28/19 14:15 Active IV ASDIRECTED Medication Orders Atorvastatin Calcium (Lipitor) 80 mg PO BEDTIME [facility] Last Admin: 10/28/19 20:09 Dose: 80 mg Admin: 10/27/19 20:56 Dose: 80 mg Bandage/Support Products ( Nasal Skill Training Program Coordinator) 1 applic NASBOTH BID [facility] Last Admin: 10/29/19 08:22 Dose: 1 applic Admin: 10/28/19 20:09 Dose: 1 applic Admin: 10/28/19 09:57 Dose: 1 applic Admin: 10/27/19 20:54 Dose: 1 applic Admin: 10/27/19 09:09 Dose: 1 applic Calcium Carbonate/Glycine (Tums) 500 mg PO DAILY PRN PRN Reason: acid reflux Clopidogrel Bisulfate (Plavix) 75 mg PO DAILY [facility] Last Admin: 10/29/19 08:23 Dose: 75 mg Admin: 10/28/19 09:58 Dose: 75 mg Docusate Sodium (Colace) 100 mg PO BID [facility] Last Admin: 10/29/19 08:22 Dose: 100 mg Admin: 10/28/19 20:11 Dose: 100 mg Admin: 10/28/19 09:57 Dose: 100 mg Admin: 10/27/19 20:55 Dose: 100 mg Gabapentin (Neurontin) 600 mg PO TID [facility] Last Admin: 10/29/19 08:22 Dose: 600 mg Admin: 10/28/19 20:09 Dose: 600 mg Admin: 10/28/19 15:07 Dose: 600 mg Admin: 10/28/19 09:58 Dose: 600 mg Admin: 10/27/19 20:57 Dose: 600 mg Admin: 10/27/19 15:14 Dose: 600 mg Sodium Chloride (Normal Saline) 1,000 mls @ 125 mls/hr IV ASDIRECTED [facility] Last Admin: 10/29/19 03:06 Dose: 125 mls/hr Infusion: 10/29/19 03:06 Dose: 125 mls/hr Admin: 10/28/19 20:00 Dose: 125 mls/hr Loratadine (Claritin) 10 mg PO DAILY [facility] Last Admin: 10/29/19 08:22 Dose: 10 mg Admin: 10/28/19 09:57 Dose: 10 mg Lorazepam (Ativan) 0.5 mg PO Q6H PRN PRN Reason: Anxiety Losartan Potassium (Cozaar) 100 mg PO DAILY [facility] Last Admin: 10/28/19 13:34 Dose: Magnesium Hydroxide (Milk Of Magnesia) 30 ml PO BID PRN PRN Reason: Constipation Last Admin: 10/29/19 08:34 Dose: 30 ml Melatonin (Melatonin) 6 mg PO BEDTIME [facility] Last Admin: 10/28/19 20:09 Dose: 6 mg Admin: 10/27/19 20:57 Dose: 6 mg Metoprolol Tartrate (Lopressor) 12.5 mg PO BID [facility] Last Admin: 10/28/19 20:10 Dose: 12.5 mg Admin: 10/28/19 13:34 Dose: Not Given Admin: 10/27/19 20:56 Dose: 12.5 mg Morphine Sulfate (Morphine) 2 mg IVPUSH Q1H PRN PRN Reason: Breakthrough Pain Last Admin: 10/27/19 17:13 Dose: 2 mg Admin: 10/27/19 16:07 Dose: 2 mg Multivitamins/Minerals (Thera M Plus) 1 tab PO DAILY [facility] Last Admin: 10/29/19 08:22 Dose: 1 tab Admin: 10/28/19 09:59 Dose: 1 tab Nitroglycerin (Nitrostat) 0.4 mg SL ASDIRECTED PRN PRN Reason: Chest Pain Ondansetron HCl (Zofran) 4 mg IVPUSH Q6H PRN PRN Reason: Nausea/Vomiting Oxycodone/Acetaminophen (Percocet 325-5 Mg) 1 - 2 tab PO Q4H PRN PRN Reason: Pain Last Admin: 10/29/19 05:39 Dose: 2 tab Admin: 10/28/19 20:06 Dose: 2 tab Admin: 10/28/19 15:08 Dose: 2 tab Admin: 10/28/19 11:27 Dose: 2 tab Admin: 10/28/19 07:19 Dose: 2 tab Admin: 10/28/19 01:10 Dose: 2 tab Admin: 10/27/19 19:24 Dose: 2 tab Admin: 10/27/19 15:14 Dose: 1 tab Admin: 10/27/19 14:50 Dose: 1 tab Pantoprazole Sodium (Protonix) 40 mg PO DAILY@0730 [facility] Last Admin: 10/29/19 08:22 Dose: 40 mg Admin: 10/28/19 07:11 Dose: 40 mg Polyethylene Glycol (Miralax) 17 gm PO DAILY PRN PRN Reason: Constipation Sertraline HCl (Zoloft) 25 mg PO DAILY [facility] Last Admin: 10/29/19 08:22 Dose: 25 mg Admin: 10/28/19 09:57 Dose: 25 mg Tramadol HCl (Ultram) 50 mg PO Q6H PRN PRN Reason: Pain (mild 1-3) Last Admin: 10/29/19 08:34 Dose: 50 mg Trazodone HCl (Trazodone) 50 mg PO BEDTIME [facility] Last Admin: 10/28/19 20:11 Dose: 50 mg Admin: 10/27/19 20:58 Dose: 50 mg - Assessment Assessment (Free Text/Narrative):: Pain fairly well controlled, not moving very well, has not been able to walk without assist of 2, BP still low - Plan Plan (Free Text/Narrative):: Dressing removed, incision looks good, mild swelling, continue to hold BP meds, [place] still in place ,monitor I/Os, PT/OT as tolerated, will need placement.
[2019-10-29] MEDS: Losartan 50 MG Tab PO SCH (13:59)
[2019-10-29] MEDS: Metoprolol Tartrate 25 MG Tab PO SCH (14:00)
[2019-10-29] MEDS: Melatonin 3 MG Tab PO SCH (21:06)
[2019-10-29] MEDS: atorvaSTATin 20 MG Tab PO SCH (21:07)
[2019-10-29] MEDS ORDERED: Albuterol/Ipratropium 3.0-0.5 MG/3 ML Neb Soln NEB PRN (21:21)
[2019-10-29] MEDS ORDERED: Furosemide 20 MG/2 ML VIAL IVPUSH ONE (21:21)
[2019-10-30] MEDS: Metoprolol Tartrate 25 MG Tab PO SCH ×4 (01:00→22:44)
[2019-10-30] MEDS: traZODone 50 MG Tab PO SCH ×2 (01:00→20:28)
[2019-10-30] MEDS: Sodium Chloride 0.9% 1,000 ML IV SCH ×2 (01:04→13:01)
--- NOTE | 2019-10-30 04:55 | CRLCR ---
Indication: Wheezing, crackles Technique: Chest 1 view Comparison: February 14, 2018 Findings/Impression: Stable cardiomegaly. Questionable retrocardiac atelectasis or infiltrate. No effusion or pneumothorax. Osteopenia. Dictated by Cherise Saenz MD @ Oct 30 2019 4:53AM Signed by Dr. Cherise Saenz @ Oct 30 2019 4:54AM
[2019-10-30] MEDS: Pantoprazole 40 MG Tab.CR PO SCH (07:07)
[2019-10-30] MEDS: traMADol 50 MG Tab PO PRN ×2 (09:37→21:22)
[2019-10-30] MEDS: Gabapentin 300 MG Cap PO SCH ×3 (09:38→20:27)
[2019-10-30] MEDS: Multivitamins with Iron/Calcium/Folic Acid/Minerals Tab PO SCH (09:38)
[2019-10-30] MEDS: Docusate Sodium 100 MG Cap PO SCH ×2 (09:38→20:26)
[2019-10-30] MEDS: Loratadine 10 MG Tab PO SCH (09:38)
[2019-10-30] MEDS: Clopidogrel 75 MG Tab PO SCH (09:39)
[2019-10-30] MEDS: Sertraline 25 MG Tab PO SCH (09:39)
[2019-10-30] MEDS: Nozin Nasal Sanitizer NASBOTH SCH ×2 (09:40→20:26)
[2019-10-30] MEDS: Losartan 50 MG Tab PO SCH (09:44)
[2019-10-30] MEDS: Acetaminophen/oxyCODONE 325-5 MG Tab PO PRN (12:59)
--- NOTE | 2019-10-30 14:16 | PCM.CONS ---
H&P History of Present Illness - General Date of Service: 10/30/19 Admit Problem/Dx: Admission Diagnosis/Problem Admission Diagnosis/Problem Osteoarthritis Source of Information: Patient, Family, Provider History Limitations: Reports: No Limitations - History of Present Illness Initial Comments - Free Text/Narative: CC: I'm so tired HPI: Nafisa was admitted 3 days ago for surgical management of severe left knee osteoarthritis. Postoperative period has been complicated by hypotension, decreased urine output and slow transition to ambulatory status. I was asked to see her by Dr Harsh Licea regarding hypotension, low urine output and possible congestive heart failure. The patient reports that she is very tired. She is having difficulty with pain control from the left knee surgery. She does not report any chest pain. She does report occasional shortness of breath though this is relatively mild. She does note that her legs are quite swollen, especially the left leg. No nausea or vomiting. No abdominal pain. Bowels have been moving but very slowly. She has not had any fevers. Chest x-ray was obtained and showed mild cardiomegaly which is stable. Labs are fairly unremarkable other than her hemoglobin has dropped from nearly 12 down to 8.5. No evidence for infection based on urinalysis. Left Knee Pain Score (Numeric/FACES): 5 Bilateral Shoulder Pain Score (Numeric/FACES): 5 Buttock Pain Score (Numeric/FACES): 8 - Related Data Allergies/Adverse Reactions: Allergies Allergy/AdvReac Type Severity Reaction Status Date / Time celecoxib Allergy Cannot Verified 10/27/19 08:37 Remember hydrocodone Allergy Rash Verified 10/27/19 08:37 naproxen Allergy Hives Verified 10/27/19 08:37 terfenadine [From S[place]ane] Allergy Hives Verified 10/27/19 08:37 Sulfa (Sulfonamide AdvReac Vomiting Verified 10/27/19 14:39 Antibiotics) Home Medications: Home Meds Ascorbic Acid [Vitamin C] 500 mg PO DAILY 05/14/14 [History] Aspirin 81 mg PO DAILY 05/14/14 [History] Calcium Carbonate/Vitamin D3 [Calcium 600-Vit D3 200 Tablet] 1 each PO DAILY [History] Multivitamin [Multi-Vitamin Daily] 1 each PO DAILY 05/14/14 [History] Pantoprazole Sodium 40 mg PO DAILY 07/21/17 [History] traZODone HCl [Trazodone HCl] 50 mg PO BEDTIME 07/21/17 [History] Gabapentin [Neurontin] 600 mg PO TID 02/14/18 [History] Melatonin 5 mg PO BEDTIME 02/14/18 [History] Polyethylene Glycol 3350 [MiraLAX] 1 packet PO DAILY PRN 02/14/18 [History] Losartan [Cozaar] 100 mg PO DAILY 02/19/18 [History] Metoprolol Tartrate 12.5 mg PO BID 02/19/18 [History] Nitroglycerin 1 tab SL ASDIRECTED 02/19/18 [History] Clopidogrel [Plavix] 75 mg PO DAILY 06/27/18 [History] Acetaminophen 650 mg PO BID PRN 07/23/19 [History] atorvaSTATin [Lipitor] 80 mg PO BEDTIME 07/23/19 [History] Calcium Carbonate [Tums] 1 tab PO DAILY PRN 07/31/19 [History] Cholecalciferol (Vitamin D3) [Vitamin D3] 1,000 unit PO DAILY 07/31/19 [History] Diclofenac Sodium 1 applic TOP QID 07/31/19 [History] Loratadine 10 mg PO DAILY 07/31/19 [History] Estradiol [Estrace 0.01% Vaginal Crm] 1 gm VAG .2X/WEEK 09/22/19 [History] LORazepam 0.5 mg PO Q6H PRN 10/27/19 [History] Melatonin 5 mg PO BEDTIME 10/27/19 [History] Sertraline [Zoloft] 25 mg PO DAILY 10/27/19 [History] Past Medical History HEENT History: Reports: Allergic Rhinitis, Impaired Vision Other HEENT History: wears glasses Cardiovascular History: Reports: CAD, High Cholesterol, Hypertension, PA, Stents , Other (See Below) Other Cardiovascular History: PA 01/2019 Respiratory History: Reports: None Gastrointestinal History: Reports: Chronic Constipation, GERD, Other (See Below) Other Gastrointestinal History: Mcdonnell's Esophagus Genitourinary History: Reports: Urinary Incontinence, Other (See Below) Other Genitourinary History: "trouble emptying bladder" [employer] History: Reports: Dysfunctional Uterine Bleeding, Musculoskeletal History: Reports: Arthritis, Back Pain, Chronic, RA Other Musculoskeletal History: Left knee pain (10/2019). 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 Shingles 02/2019 (back) Psychiatric History: Reports: Anxiety, Depression Endocrine/Metabolic History: Reports: None Hematologic History: Reports: Anticoagulation Therapy Immunologic History: Reports: None Oncologic (Cancer) History: Reports: None Dermatologic History: Reports: None - Infectious Disease History Infectious Disease History: Reports: Chicken Pox, Shingles - Past Surgical History Head Surgeries/Procedures: Reports: None HEENT Surgical History: Reports: None Cardiovascular Surgical History: Reports: Coronary Artery Stent GI Surgical History: Reports: Colonoscopy, EGD Female Surgical History: Reports: Hysterectomy Neurological Surgical History: Reports: None Musculoskeletal Surgical History: Reports: Knee Replacement, Other (See Below) Other Musculoskeletal Surgeries/Procedures:: L TKA 10/28/2019. R TKA ~2001 Dermatological Surgical History: Reports: None Social & Family History - Family History Family Medical History: Noncontributory - Tobacco Use Smoking Status *Q: Never Smoker Second Hand Smoke Exposure: No - Caffeine Use Caffeine Use: Reports: Coffee Caffeine Use Comment: 2 cups of coffee per day - Alcohol Use Alcohol Use History: No - Recreational Drug Use Recreational Drug Use: No H&P Review of Systems - Review of Systems: Review Of Systems: See Below Free Text/Narrative: A complete 12 point review of systems was obtained. Pertinent positives and negatives are noted in the history of present illness. All other systems were reviewed and were negative except as noted. Exam - Exam Exam: See Below - Vital Signs Vital Signs: Last Vital Signs Temp 36.6 C 10/30/19 13:55 Pulse 85 10/30/19 13:55 Resp 18 10/30/19 13:55 BP 98/50 L 10/30/19 13:55 Pulse Ox 97 10/30/19 13:55 Weight: 52.163 kg - Exam Quality Assessment: No: Supplemental Oxygen General: Alert, Oriented, Cooperative. No: Mild Distress HEENT: Conjunctiva Clear, Mucosa Moist & Disautel. No: Scleral Icterus Neck: Supple, Trachea Midline. No: Lymphadenopathy, JVD Lungs: Clear to Auscultation, Normal Respiratory Effort Cardiovascular: Regular Rate, Regular Rhythm, Systolic Murmur GI/Abdominal Exam: Normal Bowel Sounds, Soft, No Distention Extremities: Pedal Edema, Other (left knee with Ice pack. Surgical dressing dry and intact ). No: Increased Warmth Skin: Warm, Dry Neuro Extensive - Mental Status: Alert, Nl Response to Commands Neuro Extensive - Motor, Sensory, Reflexes: No: Dysarthria, Abnormal Motor Psychiatric: Alert, Normal Affect - Patient Data Lab Results Last 24 hrs: Laboratory Results - last 24 hr 10/30/19 10/30/19 Range/Units 04:39 04:39 WBC 10.5 (4.5-11.0) K/uL RBC 2.83 L (3.30-5.50) M/uL Hgb 8.5 L (12.0-15.0) g/dL Hct 27.3 L (36.0-48.0) % MCV 97 (80-98) fL MCH 30 (27-31) pg MCHC 31 L (32-36) % Plt Count 177 (150-400) K/uL Neut % (Auto) 82 H (36-66) % Lymph % (Auto) 9 L (24-44) % [place] % (Auto) 7 H (2-6) % Eos % (Auto) 2 (2-4) % Baso % (Auto) 0 (0-1) % Sodium 133 L (140-148) mmol/L Potassium 4.2 (3.6-5.2) mmol/L Chloride 101 (100-108) mmol/L Carbon Dioxide 25 (21-32) mmol/L Anion Gap 11.2 (5.0-14.0) mmol/L BUN 11 (7-18) mg/dL Creatinine 0.5 L (0.6-1.0) mg/dL Est Cr Clr Drug Dosing 65.53 mL/min Estimated GFR (MDRD) > 60 (>60) Glucose 103 (74-106) mg/dL Calcium 7.7 L (8.5-10.1) mg/dL Result Diagrams: 10/30/19 04:39 10/30/19 04:39 Imaging Impressions Last 24 hrs: CXR - images personally reviewed - lungs are clear with no mass, infiltrate or effusion. Borderline cardiomegally. Consult PN Assessment/Plan POD#: 3 Procedures: Procedures ASSAY OF CK (CPK) (02/14/18) ASSAY OF FERRITIN (02/14/18) ASSAY OF LIPASE (07/21/17) ASSAY OF TROPONIN QUANT (09/01/19) BREAST TOMOSYNTHESIS BI (08/05/19) C-REACTIVE PROTEIN (04/02/19) CARDIAC REHAB/MONITOR (05/06/18) CARDIOVASCULAR STRESS TEST (09/22/19) COMP SCREEN MAMMOGRAM ADD-ON (05/24/16) COMPLETE CBC W/AUTO DIFF WBC (09/01/19) COMPREHEN METABOLIC PANEL (09/01/19) CT ABD & PELVIS W/O CONTRAST (11/05/18) CT LOWER EXTREMITY W/O DYE (11/13/18) DRAIN/INJ JOINT/BURSA W/O US (07/31/19) EGD BIOPSY SINGLE/MULTIPLE (07/23/19) EGD DIAGNOSTIC BRUSH WASH (07/03/18) ELECTROCARDIOGRAM TRACING (09/01/19) EMERGENCY DEPT VISIT (09/01/19) EMERGENCY DEPT VISIT (04/02/19) EMERGENCY DEPT VISIT (11/13/18) EMERGENCY DEPT VISIT (07/07/18) EMERGENCY DEPT VISIT (02/19/18) EMERGENCY DEPT VISIT (02/14/18) EMERGENCY DEPT VISIT (07/21/17) EXTREMITY STUDY (07/23/18) HT MUSCLE IMAGE SPECT MULT (09/22/19) HYDRATE IV INFUSION ADD-ON (07/21/17) OFFICE/OUTPATIENT VISIT NEW (07/31/19) ROUTINE VENIPUNCTURE (09/01/19) SCR MAMMO BI INCL CAD (08/05/19) THER/PROPH/DIAG INJ IV PUSH (07/21/17) THER/PROPH/DIAG INJ SC/IM (04/02/19) THROMBOPLASTIN TIME PARTIAL (02/14/18) URINALYSIS AUTO W/SCOPE (04/02/19) URINE CULTURE/COLONY COUNT (04/02/19) X-RAY EXAM CHEST 1 VIEW (02/14/18) X-RAY EXAM HIP UNI 2-3 VIEWS (11/13/18) X-RAY EXAM OF FOOT (07/07/18) X-RAY EXAM OF KNEE 3 (07/31/19) X-RAY EXAM OF KNEES (07/31/19) X-RAY EXAM OF SHOULDER (11/13/18) (1) Anemia due to blood loss, acute SNOMED Code(s): 700489214 Code(s): D62 - ACUTE POSTHEMORRHAGIC ANEMIA Current Visit: Yes (2) Status post total left knee replacement SNOMED Code(s): 7813538435469, 6561763735154 Code(s): Z96.652 - PRESENCE OF LEFT ARTIFICIAL KNEE JOINT Current Visit: Yes Problem List Initiated/Reviewed/Updated: Yes My Orders Last 24 Hours: My Active Orders 10/30/19 14:10 Antiembolic Devices [RC] .Routine ELIS Hose [Antiembolic Hose] [OM.PC] Routine Plan: ASSESSMENT AND PLAN - Anemia due to acute blood loss-patient has experienced a hemoglobin drop postoperatively which I would suspect accounts for some of her fatigue. There is no evidence for ongoing blood loss. Level has not dropped enough to indicate a blood transfusion at this time. -Hemoglobin in the morning Weakness and fatigue-patient does have some lower extremity edema but no other evidence to suggest congestive heart failure. Blood pressures are on the low side and I suspect that intravascularly she is close to normal or slightly on the low side. I do not believe that diuresis will be beneficial at this time. There is no evidence for infection. There is likely contribution from her anemia as discussed above. -Physical therapy -ELIS stockings for the edema Coronary artery disease-history of PA with stenting. She is on dual antiplatelet therapy as well as a beta-john and an ARB. Blood pressure is on the low side. -Hold ARB at least through the weekend, reassess early next week -Continue beta-john and dual antiplatelet therapy Left knee osteoarthritis status post left TKA-some difficulty with pain control. Slow transition to ambulatory status. -Postoperative care as per orthopedic team -Discharge anticipated to [facility] Disposition -I would anticipate the patient will be stable for discharge to a [place] [facility] tomorrow Efrem Nixon M.D. Requesting Provider: Dr Licea Date Consult Requested: 10/30/19 Reason for Consult: possible CHF Patient History Reviewed: Yes Admission H&P Reviewed: No Notified Requestor: Yes Time Spent (in minutes): 60
[2019-10-30] MEDS: ceFAZolin 1 GM in Premix Bag 1 BAG IV SCH ×2 (14:27→21:30)
[2019-10-30] MEDS: atorvaSTATin 20 MG Tab PO SCH (20:26)
[2019-10-30] MEDS: Melatonin 3 MG Tab PO SCH (20:27)
[2019-10-31] MEDS: ceFAZolin 1 GM in Premix Bag 1 BAG IV SCH (06:13)
[2019-10-31] MEDS: Pantoprazole 40 MG Tab.CR PO SCH (07:32)
[2019-10-31] MEDS: Clopidogrel 75 MG Tab PO SCH (08:16)
[2019-10-31] MEDS: Gabapentin 300 MG Cap PO SCH (08:16)
[2019-10-31] MEDS: Sertraline 25 MG Tab PO SCH (08:16)
[2019-10-31] MEDS: Nozin Nasal Sanitizer NASBOTH SCH (08:16)
[2019-10-31] MEDS: Docusate Sodium 100 MG Cap PO SCH (08:17)
[2019-10-31] MEDS: Metoprolol Tartrate 25 MG Tab PO SCH (08:18)
[2019-10-31] MEDS: Multivitamins with Iron/Calcium/Folic Acid/Minerals Tab PO SCH (08:19)
[2019-10-31] MEDS: Loratadine 10 MG Tab PO SCH (08:19)
--- NOTE | 2019-10-31 10:18 | PCM.CONSN ---
- General Info Date of Service: 10/31/19 Subjective Update: There were no acute events overnight. She did require supplemental oxygen overnight. Knee pain is a little better today. She is moving a little better with physical therapy today but does still require the assist of 2 for pivots. Mild shortness of breath but this is intermittent. Lower extremity edema is a little better with the ELIS stockings. Blood pressures are climbing with systolic pressures in the 130-140s. Functional Status: Reports: Pain Controlled - Review of Systems General: Reports: Weakness - Patient Data Vitals - Most Recent: Last Vital Signs Temp 37.1 C 10/31/19 07:32 Pulse 88 10/31/19 08:18 Resp 18 10/31/19 07:32 BP 152/77 H 10/31/19 08:18 Pulse Ox 92 L 10/31/19 09:47 Weight - Most Recent: 52.163 kg I&O - Last 24 Hours: Intake & Output 10/30/19 10/31/19 10/31/19 22:59 06:59 14:59 Intake Total 350 200 Output Total 100 200 Balance 250 200 -200 Med Orders - Current: Current Medications Albuterol/Ipratropium (Duoneb 3.0-0.5 Mg/3 Ml) 3 ml NEB Q4H PRN PRN Reason: Wheezing Atorvastatin Calcium (Lipitor) 80 mg PO BEDTIME [facility] Last Admin: 10/30/19 20:26 Dose: 80 mg Bandage/Support Products ( Nasal Director Biology) 1 applic NASBOTH BID [facility] Stop: 11/02/19 21:01 Last Admin: 10/31/19 08:16 Dose: 1 applic Calcium Carbonate/Glycine (Tums) 500 mg PO DAILY PRN PRN Reason: acid reflux Clopidogrel Bisulfate (Plavix) 75 mg PO DAILY [facility] Last Admin: 10/31/19 08:16 Dose: 75 mg Docusate Sodium (Colace) 100 mg PO BID [facility] Last Admin: 10/31/19 08:17 Dose: 100 mg Gabapentin (Neurontin) 600 mg PO TID [facility] Last Admin: 10/31/19 08:16 Dose: 600 mg Sodium Chloride (Normal Saline) 1,000 mls @ 25 mls/hr IV ASDIRECTED [facility] Last Admin: 10/30/19 13:01 Dose: 125 mls/hr Cefazolin Sodium/Dextrose 1 gm (/ Premix) 50 mls @ 100 mls/hr IV Q8HR [facility] Stop: 11/01/19 06:29 Last Admin: 10/31/19 06:13 Dose: 100 mls/hr Loratadine (Claritin) 10 mg PO DAILY [facility] Last Admin: 10/31/19 08:19 Dose: 10 mg Lorazepam (Ativan) 0.5 mg PO Q6H PRN PRN Reason: Anxiety Losartan Potassium (Cozaar) 100 mg PO DAILY [facility] Last Admin: 10/30/19 09:44 Dose: Not Given Magnesium Hydroxide (Milk Of Magnesia) 30 ml PO BID PRN PRN Reason: Constipation Last Admin: 10/29/19 19:50 Dose: 30 ml Melatonin (Melatonin) 6 mg PO BEDTIME [facility] Last Admin: 10/30/19 20:27 Dose: 6 mg Metoprolol Tartrate (Lopressor) 12.5 mg PO BID [facility] Last Admin: 10/31/19 08:18 Dose: 12.5 mg Morphine Sulfate (Morphine) 2 mg IVPUSH Q1H PRN PRN Reason: Breakthrough Pain Last Admin: 10/27/19 17:13 Dose: 2 mg Multivitamins/Minerals (Thera M Plus) 1 tab PO DAILY [facility] Last Admin: 10/31/19 08:19 Dose: 1 tab Nitroglycerin (Nitrostat) 0.4 mg SL ASDIRECTED PRN PRN Reason: Chest Pain Ondansetron HCl (Zofran) 4 mg IVPUSH Q6H PRN PRN Reason: Nausea/Vomiting Oxycodone/Acetaminophen (Percocet 325-5 Mg) 1 - 2 tab PO Q4H PRN PRN Reason: Pain Last Admin: 10/30/19 12:59 Dose: 2 tab Pantoprazole Sodium (Protonix) 40 mg PO DAILY@0730 [facility] Last Admin: 10/31/19 07:32 Dose: 40 mg Polyethylene Glycol (Miralax) 17 gm PO DAILY PRN PRN Reason: Constipation Last Admin: 10/29/19 19:50 Dose: 17 gm Sertraline HCl (Zoloft) 25 mg PO DAILY [facility] Last Admin: 10/31/19 08:16 Dose: 25 mg Tramadol HCl (Ultram) 50 mg PO Q6H PRN PRN Reason: Pain (mild 1-3) Last Admin: 10/30/19 21:22 Dose: 50 mg Trazodone HCl (Trazodone) 50 mg PO BEDTIME [facility] Last Admin: 10/30/19 20:28 Dose: 50 mg Discontinued Medications Fentanyl (Sublimaze) Confirm Administered Dose 100 mcg .ROUTE .STK-MED ONE Stop: 10/27/19 10:38 Furosemide (Lasix) 20 mg IVPUSH ONETIME ONE Stop: 10/29/19 21:22 Last Admin: 10/29/19 22:03 Dose: 20 mg Lactated Ringer's (Ringers, Lactated) 1,000 mls @ 75 mls/hr IV ASDIRECTED [facility] Last Admin: 10/27/19 09:09 Dose: 75 mls/hr Cefazolin Sodium 2 gm/ Sodium (Chloride) 50 mls @ 100 mls/hr IV ONETIME ONE Stop: 10/27/19 09:59 Last Admin: 10/27/19 11:09 Dose: 100 mls/hr Tranexamic Acid 520 mg/ Sodium (Chloride) 55.2 mls @ 220.8 mls/hr IV ONETIME ONE Stop: 10/27/19 09:44 Last Admin: 10/27/19 11:50 Dose: 220.8 mls/hr Lactated Ringer's (Ringers, Lactated) Confirm Administered Dose 1,000 mls @ as directed .ROUTE .STK-MED ONE Stop: 10/27/19 12:46 Cefazolin Sodium/Dextrose 1 gm (/ Premix) 50 mls @ 100 mls/hr IV Q8H [facility] Stop: 10/28/19 09:29 Last Admin: 10/28/19 09:54 Dose: 100 mls/hr Sodium Chloride (Normal Saline) 1,000 mls @ 500 mls/hr IV ASDIRECTED [facility] Stop: 10/27/19 14:01 Last Admin: 10/28/19 07:09 Dose: 125 mls/hr Tranexamic Acid 520 mg/ Sodium (Chloride) 55.2 mls @ 220.8 mls/hr IV ONETIME ONE Stop: 10/27/19 14:44 Last Admin: 10/27/19 14:37 Dose: 220.8 mls/hr Sodium Chloride (Normal Saline) 1,000 mls @ 500 mls/hr IV BOLUS [facility] Stop: 10/28/19 15:15 Last Admin: 10/28/19 13:40 Dose: 500 mls/hr Midazolam HCl (Versed 1 Mg/Ml) Confirm Administered Dose 2 mg .ROUTE .STK-MED ONE Stop: 10/27/19 10:38 Povidone Iodine (Betadine 10% Soln) Confirm Administered Dose 1 ml .ROUTE .STK- MED ONE Stop: 10/27/19 10:34 Last Admin: 10/27/19 11:59 Dose: 15 ml Propofol (Diprivan 20 Ml) Confirm Administered Dose 200 mg .ROUTE .STK-MED ONE Stop: 10/27/19 10:39 - Exam Quality Assessment: No: Supplemental Oxygen General: Alert, Oriented, Cooperative, No Acute Distress Lungs: Clear to Auscultation, Normal Respiratory Effort Cardiovascular: Regular Rate, Regular Rhythm GI/Abdominal Exam: Soft, No Distention Extremities: Pedal Edema Psy/Mental Status: Alert, Normal Affect Consult PN Assessment/Plan POD#: 4 Procedures: Procedures ASSAY OF CK (CPK) (02/14/18) ASSAY OF FERRITIN (02/14/18) ASSAY OF LIPASE (07/21/17) ASSAY OF TROPONIN QUANT (09/01/19) BREAST TOMOSYNTHESIS BI (08/05/19) C-REACTIVE PROTEIN (04/02/19) CARDIAC REHAB/MONITOR (05/06/18) CARDIOVASCULAR STRESS TEST (09/22/19) COMP SCREEN MAMMOGRAM ADD-ON (05/24/16) COMPLETE CBC W/AUTO DIFF WBC (09/01/19) COMPREHEN METABOLIC PANEL (09/01/19) CT ABD & PELVIS W/O CONTRAST (11/05/18) CT LOWER EXTREMITY W/O DYE (11/13/18) DRAIN/INJ JOINT/BURSA W/O US (07/31/19) EGD BIOPSY SINGLE/MULTIPLE (07/23/19) EGD DIAGNOSTIC BRUSH WASH (07/03/18) ELECTROCARDIOGRAM TRACING (09/01/19) EMERGENCY DEPT VISIT (09/01/19) EMERGENCY DEPT VISIT (04/02/19) EMERGENCY DEPT VISIT (11/13/18) EMERGENCY DEPT VISIT (07/07/18) EMERGENCY DEPT VISIT (02/19/18) EMERGENCY DEPT VISIT (02/14/18) EMERGENCY DEPT VISIT (07/21/17) EXTREMITY STUDY (07/23/18) HT MUSCLE IMAGE SPECT MULT (09/22/19) HYDRATE IV INFUSION ADD-ON (07/21/17) OFFICE/OUTPATIENT VISIT NEW (07/31/19) ROUTINE VENIPUNCTURE (09/01/19) SCR MAMMO BI INCL CAD (08/05/19) THER/PROPH/DIAG INJ IV PUSH (07/21/17) THER/PROPH/DIAG INJ SC/IM (04/02/19) THROMBOPLASTIN TIME PARTIAL (02/14/18) URINALYSIS AUTO W/SCOPE (04/02/19) URINE CULTURE/COLONY COUNT (04/02/19) X-RAY EXAM CHEST 1 VIEW (02/14/18) X-RAY EXAM HIP UNI 2-3 VIEWS (11/13/18) X-RAY EXAM OF FOOT (07/07/18) X-RAY EXAM OF KNEE 3 (07/31/19) X-RAY EXAM OF KNEES (07/31/19) X-RAY EXAM OF SHOULDER (11/13/18) (1) Anemia due to blood loss, acute SNOMED Code(s): 295286264 Code(s): D62 - ACUTE POSTHEMORRHAGIC ANEMIA Current Visit: Yes (2) Status post total left knee replacement SNOMED Code(s): 3268731424775, 7063292573608 Code(s): Z96.652 - PRESENCE OF LEFT ARTIFICIAL KNEE JOINT Current Visit: Yes Problem List Initiated/Reviewed/Updated: Yes My Orders Last 24 Hours: My Active Orders 10/30/19 14:10 Antiembolic Devices [RC] .Routine ELIS Hose [Antiembolic Hose] [OM.PC] Routine Plan: ASSESSMENT AND PLAN - Anemia due to acute blood loss-patient has experienced a hemoglobin drop postoperatively which I would suspect accounts for some of her fatigue. There is no evidence for ongoing blood loss. Weakness and fatigue-patient does have some lower extremity edema but still no evidence for congestive heart failure. Intravascular volume status appears appropriate. She does have some lower extremity edema but this appears a little better with the ELIS stockings. -Physical therapy -ELIS stockings for the edema Coronary artery disease-history of [place] with stenting. She is on dual antiplatelet therapy as well as a beta-john and an ARB. Blood pressure is improving. -Restart ARB tomorrow -Continue beta-john and dual antiplatelet therapy Left knee osteoarthritis status post left TKA-some difficulty with pain control. Slow transition to ambulatory status. -Postoperative care as per orthopedic team -Discharge anticipated to [facility] facility Disposition -I believe the patient is stable for transfer to a snf facility today. I would recommend that she continues to use the ELIS stockings to help with her edema. She may resume her losartan tomorrow. Efrem Nixon M.D.
[2019-10-31] MEDS: traMADol 50 MG Tab PO PRN (10:27)
[2019-10-31 11:01] VITALS: BP 144/58; PULSE 73
--- NOTE | 2019-10-31 11:35 | PCM.DCSUM1 ---
Discharge Summary - Hospital Course Free Text/Narrative:: 79 year old female admitted for left TKA. History of CAD with stents, HTN. Diagnosis: Stroke: No Modified Yolanda Scale: No Symptoms at All Modified Yolanda Scale Score: 0 - Discharge Data Discharge Date: 10/31/19 Discharge Disposition: DC/Tfer to SNF 03 Condition: Good - Referral to Home Health Date of Face to Face Encounter: 10/31/19 Primary Care Physician: Hiren Jorge MD - Discharge Diagnosis/Problem(s) (1) Status post total left knee replacement SNOMED Code(s): 8688165534335, [id number] ICD Code: Z96.652 - PRESENCE OF LEFT ARTIFICIAL KNEE JOINT Status: Acute Current Visit: Yes (2) Anemia due to blood loss, acute SNOMED Code(s): 900630664 ICD Code: D62 - ACUTE POSTHEMORRHAGIC ANEMIA Status: Acute Current Visit : Yes - Patient Summary/Data Operative Procedure(s) Performed: Left Total Knee Arthroplasty Consults: Consultations 10/27/19 12:52 Consult to Case Management/Dictaphone Mechanic [CONS] Routine Comment: Physician Instructions: Service(s) to be Consulted: Case Management Reason for Consult: Plan for Discharge OT Evaluation and Treatment [CONS] Routine Please Evaluate and Treat. OT Reason for Consult: ADL's This query below is only for informational purposes and is not editable. PT Evaluation and Treatment [CONS] Routine Please Evaluate and Treat. PT Reason for Consult: Post op Ortho Surgery This query below is only for informational purposes and is not editable. 10/30/19 12:33 Consult to Physician [CONS] Routine Consulting Provider: Efrem Nixon Call Completed to Consulting Physician: Yes Reason for Consult: Assist with BP, fluid overload Date Notified: 10/30/19 Hospital Course: Admitted for left TKA. Tolerated procedure well. Poor mobility ost op. Difficulty with hypotension and poor urine output post op. HTN meds held, responded to fluid bolus. Post op anemia contributing to fatigue and poor performance with PT. Consulted Hospitalist and was able to resume home meds prior to transfer. Continue Plavix and ASA. Transfer to SNF. - Patient Instructions Diet: Usual Diet as Tolerated Activity: Apply Ice, As Tolerated, Elevate Extremity, Full Weight Bearing Showering/Bathing: May Shower Notify Provider of: Fever, Increased Pain, Swelling and Redness, Drainage Other/Special Instructions: thigh high ELIS parada. - Discharge Plan *PRESCRIPTION DRUG MONITORING PROGRAM REVIEWED*: No *COPY OF PRESCRIPTION DRUG MONITORING REPORT IN PATIENT JOSUE: No Prescriptions/Med Rec: oxyCODONE HCl/Acetaminophen [Percocet 5-325 mg Tablet] 2 each PO Q6HR PRN #40 tablet PRN Reason: Pain (Moderate 4-6) traMADol [Ultram] 50 mg PO Q6H PRN #28 tab PRN Reason: Pain (Mild 1-3) Home Medications: Home Meds Ascorbic Acid [Vitamin C] 500 mg PO DAILY 05/14/14 [History] Aspirin 81 mg PO DAILY 05/14/14 [History] Calcium Carbonate/Vitamin D3 [Calcium 600-Vit D3 200 Tablet] 1 each PO DAILY [History] Multivitamin [Multi-Vitamin Daily] 1 each PO DAILY 05/14/14 [History] Pantoprazole Sodium 40 mg PO DAILY 07/21/17 [History] traZODone HCl [Trazodone HCl] 50 mg PO BEDTIME 07/21/17 [History] Gabapentin [Neurontin] 600 mg PO TID 02/14/18 [History] Melatonin 5 mg PO BEDTIME 02/14/18 [History] Polyethylene Glycol 3350 [MiraLAX] 1 packet PO DAILY PRN 02/14/18 [History] Losartan [Cozaar] 100 mg PO DAILY 02/19/18 [History] Metoprolol Tartrate 12.5 mg PO BID 02/19/18 [History] Nitroglycerin 1 tab SL ASDIRECTED 02/19/18 [History] Clopidogrel [Plavix] 75 mg PO DAILY 06/27/18 [History] Acetaminophen 650 mg PO BID PRN 07/23/19 [History] atorvaSTATin [Lipitor] 80 mg PO BEDTIME 07/23/19 [History] Calcium Carbonate [Tums] 1 tab PO DAILY PRN 07/31/19 [History] Cholecalciferol (Vitamin D3) [Vitamin D3] 1,000 unit PO DAILY 07/31/19 [History] Diclofenac Sodium 1 applic TOP QID 07/31/19 [History] Loratadine 10 mg PO DAILY 07/31/19 [History] Estradiol [Estrace 0.01% Vaginal Crm] 1 gm VAG .2X/WEEK 09/22/19 [History] LORazepam 0.5 mg PO Q6H PRN 10/27/19 [History] Melatonin 5 mg PO BEDTIME 10/27/19 [History] Sertraline [Zoloft] 25 mg PO DAILY 10/27/19 [History] oxyCODONE HCl/Acetaminophen [Percocet 5-325 mg Tablet] 2 each PO Q6HR PRN #40 tablet 10/31/19 [Rx] traMADol [Ultram] 50 mg PO Q6H PRN #28 tab 10/31/19 [Rx] Oxygen Therapy Mode: Nasal Cannula Oxygen Flow Rate (L/min): 2 (bedtime and prn) Maintain SpO2% greater than: 93 Referrals: Harsh Licea MD [Physician] - 11/11/19 10:45 am (Please arrive 15 minutes early to register for your appointment.) - Discharge Summary/Plan Comment DC Time >30 min.: Yes - Patient Data Vitals - Most Recent: Last Vital Signs Temp 36.2 C 10/31/19 10:57 Pulse 73 10/31/19 10:57 Resp 16 10/31/19 10:57 BP 144/58 H 10/31/19 10:57 Pulse Ox 89 L 10/31/19 10:57 Weight - Most Recent: 52.163 kg I&O - Last 24 hours: Intake & Output 10/30/19 10/31/19 10/31/19 22:59 06:59 14:59 Intake Total 350 200 Output Total 100 200 Balance 250 200 -200 Med Orders - Current: Current Medications Albuterol/Ipratropium (Duoneb 3.0-0.5 Mg/3 Ml) 3 ml NEB Q4H PRN PRN Reason: Wheezing Atorvastatin Calcium (Lipitor) 80 mg PO BEDTIME [facility] Last Admin: 10/30/19 20:26 Dose: 80 mg Bandage/Support Products ( Nasal Manufacturing Shift Supervisor) 1 applic NASBOTH BID [facility] Stop: 11/02/19 21:01 Last Admin: 10/31/19 08:16 Dose: 1 applic Calcium Carbonate/Glycine (Tums) 500 mg PO DAILY PRN PRN Reason: acid reflux Clopidogrel Bisulfate (Plavix) 75 mg PO DAILY [facility] Last Admin: 10/31/19 08:16 Dose: 75 mg Docusate Sodium (Colace) 100 mg PO BID [facility] Last Admin: 10/31/19 08:17 Dose: 100 mg Gabapentin (Neurontin) 600 mg PO TID [facility] Last Admin: 10/31/19 08:16 Dose: 600 mg Sodium Chloride (Normal Saline) 1,000 mls @ 25 mls/hr IV ASDIRECTED [facility] Last Admin: 10/30/19 13:01 Dose: 125 mls/hr Cefazolin Sodium/Dextrose 1 gm (/ Premix) 50 mls @ 100 mls/hr IV Q8HR [facility] Stop: 11/01/19 06:29 Last Admin: 10/31/19 06:13 Dose: 100 mls/hr Loratadine (Claritin) 10 mg PO DAILY [facility] Last Admin: 10/31/19 08:19 Dose: 10 mg Lorazepam (Ativan) 0.5 mg PO Q6H PRN PRN Reason: Anxiety Losartan Potassium (Cozaar) 100 mg PO DAILY [facility] Last Admin: 10/30/19 09:44 Dose: Not Given Magnesium Hydroxide (Milk Of Magnesia) 30 ml PO BID PRN PRN Reason: Constipation Last Admin: 10/29/19 19:50 Dose: 30 ml Melatonin (Melatonin) 6 mg PO BEDTIME [facility] Last Admin: 10/30/19 20:27 Dose: 6 mg Metoprolol Tartrate (Lopressor) 12.5 mg PO BID [facility] Last Admin: 10/31/19 08:18 Dose: 12.5 mg Morphine Sulfate (Morphine) 2 mg IVPUSH Q1H PRN PRN Reason: Breakthrough Pain Last Admin: 10/27/19 17:13 Dose: 2 mg Multivitamins/Minerals (Thera M Plus) 1 tab PO DAILY [facility] Last Admin: 10/31/19 08:19 Dose: 1 tab Nitroglycerin (Nitrostat) 0.4 mg SL ASDIRECTED PRN PRN Reason: Chest Pain Ondansetron HCl (Zofran) 4 mg IVPUSH Q6H PRN PRN Reason: Nausea/Vomiting Oxycodone/Acetaminophen (Percocet 325-5 Mg) 1 - 2 tab PO Q4H PRN PRN Reason: Pain Last Admin: 10/30/19 12:59 Dose: 2 tab Pantoprazole Sodium (Protonix) 40 mg PO DAILY@0730 [facility] Last Admin: 10/31/19 07:32 Dose: 40 mg Polyethylene Glycol (Miralax) 17 gm PO DAILY PRN PRN Reason: Constipation Last Admin: 10/29/19 19:50 Dose: 17 gm Sertraline HCl (Zoloft) 25 mg PO DAILY [facility] Last Admin: 10/31/19 08:16 Dose: 25 mg Tramadol HCl (Ultram) 50 mg PO Q6H PRN PRN Reason: Pain (mild 1-3) Last Admin: 10/31/19 10:27 Dose: 50 mg Trazodone HCl (Trazodone) 50 mg PO BEDTIME [facility] Last Admin: 10/30/19 20:28 Dose: 50 mg Discontinued Medications Fentanyl (Sublimaze) Confirm Administered Dose 100 mcg .ROUTE .STK-MED ONE Stop: 10/27/19 10:38 Furosemide (Lasix) 20 mg IVPUSH ONETIME ONE Stop: 10/29/19 21:22 Last Admin: 10/29/19 22:03 Dose: 20 mg Lactated Ringer's (Ringers, Lactated) 1,000 mls @ 75 mls/hr IV ASDIRECTED [facility] Last Admin: 10/27/19 09:09 Dose: 75 mls/hr Cefazolin Sodium 2 gm/ Sodium (Chloride) 50 mls @ 100 mls/hr IV ONETIME ONE Stop: 10/27/19 09:59 Last Admin: 10/27/19 11:09 Dose: 100 mls/hr Tranexamic Acid 520 mg/ Sodium (Chloride) 55.2 mls @ 220.8 mls/hr IV ONETIME ONE Stop: 10/27/19 09:44 Last Admin: 10/27/19 11:50 Dose: 220.8 mls/hr Lactated Ringer's (Ringers, Lactated) Confirm Administered Dose 1,000 mls @ as directed .ROUTE .STK-MED ONE Stop: 10/27/19 12:46 Cefazolin Sodium/Dextrose 1 gm (/ Premix) 50 mls @ 100 mls/hr IV Q8H [facility] Stop: 10/28/19 09:29 Last Admin: 10/28/19 09:54 Dose: 100 mls/hr Sodium Chloride (Normal Saline) 1,000 mls @ 500 mls/hr IV ASDIRECTED [facility] Stop: 10/27/19 14:01 Last Admin: 10/28/19 07:09 Dose: 125 mls/hr Tranexamic Acid 520 mg/ Sodium (Chloride) 55.2 mls @ 220.8 mls/hr IV ONETIME ONE Stop: 10/27/19 14:44 Last Admin: 10/27/19 14:37 Dose: 220.8 mls/hr Sodium Chloride (Normal Saline) 1,000 mls @ 500 mls/hr IV BOLUS SU Stop: 10/28/19 15:15 Last Admin: 10/28/19 13:40 Dose: 500 mls/hr Midazolam HCl (Versed 1 Mg/Ml) Confirm Administered Dose 2 mg .ROUTE .STK-MED ONE Stop: 10/27/19 10:38 Povidone Iodine (Betadine 10% Soln) Confirm Administered Dose 1 ml .ROUTE .STK- MED ONE Stop: 10/27/19 10:34 Last Admin: 10/27/19 11:59 Dose: 15 ml Propofol (Diprivan 20 Ml) Confirm Administered Dose 200 mg .ROUTE .STK-MED ONE Stop: 10/27/19 10:39
--- NOTE | 2019-11-03 09:20 | OR ---
DATE OF PROCEDURE: 10/27/2019 SURGEON: Harsh Licea MD PREOPERATIVE DIAGNOSIS: Osteoarthritis, left knee. POSTOPERATIVE DIAGNOSIS: Osteoarthritis, left knee. PROCEDURE PERFORMED: Left total knee arthroplasty using a size 4 femur, size D tibia, 29 mm patella, and 11 mm polyethylene. ANESTHESIA: Spinal with sedation. INDICATIONS: Hilda is a 79-year-old female with a history of progressive pain in the left knee over the past several months. She has a history of right total knee arthroplasty and is now limited in her activities by left knee pain. She is having progressive difficulty with activities of daily living. She now presents for a left total knee arthroplasty. Risks, benefits, potential complications of the procedure were discussed. PROCEDURE IN DETAIL: After adequate anesthesia was obtained, patient was placed supine with a tourniquet about the upper thigh. Leg was exsanguinated and the tourniquet inflated to 300 mmHg. A longitudinal incision was made over the anterior aspect of the knee and carried down to the subcutaneous tissues and a medial parapatellar approach was utilized. The posterior aspect of the patella was resected with an oscillating saw. Severe patellofemoral wear was noted. Intramedullary canal of the femur was drilled. Intramedullary guide was placed, and the distal guide was then secured and distal femoral cut was made. The extramedullary tibial alignment jig was placed. Proximal tibia was resected with an oscillating saw. The remaining menisci were excised. The femur was then sized to a 4 component, 4 cutting jig was placed and remaining femoral cuts were then made. The trial femur was placed and the intramedullary notch cut was made for a posterior cruciate sacrificing component. The tibia was then sized and a 10 mm trial was placed. Knee was taken through range of motion. Tibial baseplate was secured in position with small pins. Metaphysis was drilled and pins were then punched. The patella was resurfaced with a 29 mm patellar button and a lateral release was utilized for better tracking. The trials were removed. The knee was thoroughly irrigated with pulse lavage. Components were dried. Components were cemented in place. Excess cement was removed. The knee was held in full extension with a 10 mm insert as cement cured. The knee was taken through range of motion. It was found to have a slight amount of play and a 12 mm insert was then utilized, which provided good balance in flexion and extension. The trial was removed. The knee was irrigated with pulse lavage. This was followed by irrigation with a dilute Betadine solution, which was left for 2-1/2 minutes and then irrigated out with pulse lavage. Knee was then closed with Ethibond in the deep layer, 2-0 Vicryl, and a running 3-0 Monocryl. Steri-Strips were applied. Light compressive dressing was placed. The patient tolerated procedure well. There were no complications, taken from the operating room in stable condition. Harsh Licea MD /[id number]
== END 2019-10-31 12:30 | DRG 470 ==
LOC: JP.SDS 07:46 → JP.MS 12:52 → UNDOADMOB 12:52 → JP.MS 12:52 → JP.SDS 10-28 14:19
PROVIDERS: ADMIT Specialist; ATTEND Specialist
PROC: 0SRD0J9 Replacement of Left Knee Joint with Synthetic Substitute, Cemented, Open Approach (ICD-10-PCS; principal; 2019-10-27)
DX: M17.12 Unilateral primary osteoarthritis, left knee (principal); D62 Acute posthemorrhagic anemia; I25.10 Atherosclerotic heart disease of native coronary artery without angina pectoris; I10 Essential (primary) hypertension; E78.5 Hyperlipidemia, unspecified; I65.23 Occlusion and stenosis of bilateral carotid arteries; Z79.02 Long term (current) use of antithrombotics/antiplatelets; I95.81 Postprocedural hypotension; I51.7 Cardiomegaly; H54.7 Unspecified visual loss; E78.00 Pure hypercholesterolemia, unspecified; K21.9 Gastro-esophageal reflux disease without esophagitis; K59.09 Other constipation; G89.29 Other chronic pain; M54.9 Dorsalgia, unspecified; M06.9 Rheumatoid arthritis, unspecified; G43.909 Migraine, unspecified, not intractable, without status migrainosus; G20 Parkinson's disease; F41.9 Anxiety disorder, unspecified; Z96.651 Presence of right artificial knee joint; F32.9 Major depressive disorder, single episode, unspecified; Z79.01 Long term (current) use of anticoagulants; Z95.5 Presence of coronary angioplasty implant and graft; Z79.82 Long term (current) use of aspirin; Z79.899 Other long term (current) drug therapy; I25.2 Old myocardial infarction; Z88.1 Allergy status to other antibiotic agents; Z88.5 Allergy status to narcotic agent; Z88.2 Allergy status to sulfonamides; Z88.8 Allergy status to other drugs, medicaments and biological substances; Z86.73 Personal history of transient ischemic attack (TIA), and cerebral infarction without residual deficits; Z90.710 Acquired absence of both cervix and uterus; Z99.81 Dependence on supplemental oxygen
CPT/HCPCS: 27447; 36415 ×2; 73560 ×2; 80053; 81003; 85027 ×2; 86850; 86900; 86901; 97110; 97162; 97165; 97530; 97535; A9270 ×22; C1713; C1776 ×4; J0690 ×4; J2250; J2270 ×2; J2704; J3010; J7030 ×3; J7050 ×3; J7120 ×2; 71045; 80048; 85025; 97010-GO; 97140-GP; J1940

== ENCOUNTER 2022-12-09 04:36 | Emergency (ER) | payer MEDICARE ==
[2022-12-09 04:46] VITALS: BP 179/80; PULSE 74
== END 2022-12-09 05:51 ==
LOC: JP.ED 04:36
DX: S01.511A Laceration without foreign body of lip, initial encounter (principal); I25.10 Atherosclerotic heart disease of native coronary artery without angina pectoris; E78.00 Pure hypercholesterolemia, unspecified; I10 Essential (primary) hypertension; I25.2 Old myocardial infarction; K21.9 Gastro-esophageal reflux disease without esophagitis; M06.9 Rheumatoid arthritis, unspecified; Z88.1 Allergy status to other antibiotic agents; Z88.5 Allergy status to narcotic agent; Z88.2 Allergy status to sulfonamides; Z88.8 Allergy status to other drugs, medicaments and biological substances; Z79.82 Long term (current) use of aspirin; Z79.899 Other long term (current) drug therapy; W01.0XXA Fall on same level from slipping, tripping and stumbling without subsequent striking against object, initial encounter; Y93.01 Activity, walking, marching and hiking
CPT/HCPCS: 12011; 99282; 99284

== ENCOUNTER 2023-04-04 07:52 | Day surgery (SDC) | payer MEDICARE ==
[~2023-04-04 07:52] MED LIST changes: +Bupivacaine 0.5% 30 ML SDV ONE; -Lactated Ringers 1,000 ML IV SCH
[2023-04-04] MEDS ORDERED: Nozin Nasal Sanitizer NASBOTH ONE (08:00)
[2023-04-04 08:21] LABS: HEMATOCRIT 34.7 % (34.3-46.0); HEMOGLOBIN 10.7 g/dL (11.2-15.5); MEAN CORPUSCULAR HEMOGLOBIN 29.4 pg (31.6-35.5); MEAN CORPUSCULAR HGB CONC 30.8 g/dL (31.6-35.5); MEAN CORPUSCULAR VOLUME 95.3 fL (81.4-99.0); RED BLOOD CELL COUNT 3.64 M/uL (3.77-5.24); WHITE BLOOD CELL COUNT,WBC 6.8 K/uL (3.2-11.0)
[2023-04-04] MEDS ORDERED: Lactated Ringers 1,000 ML IV SCH (08:30)
[2023-04-04 08:37] LABS: BLOOD UREA NITROGEN,BUN 23 mg/dL (7-18); CALCIUM 8.8 mg/dL (8.5-10.1); CARBON DIOXIDE,CO2 31 mmol/L (21-32); CHLORIDE,CL 103 mmol/L (100-108); CREATININE 0.5 mg/dL (0.6-1.0); ESTIMATED GFR 93 mL/min (>60); GLUCOSE RANDOM 101 mg/dL (74-106); POTASSIUM,K 4.7 mmol/L (3.6-5.2); SODIUM,NA 139 mmol/L (140-148)
[2023-04-04 08:40] LABS: ANION GAP 9.7 mmol/L (5.0-14.0)
[2023-04-04] MEDS ORDERED: Propofol 200 MG/20 ML SDV ONE ×2 (08:43→11:03)
[2023-04-04] MEDS ORDERED: fentaNYL 100 MCG/2 ML SDV ONE (08:43)
[2023-04-04] MEDS ORDERED: ceFAZolin 2 GM in Premix Bag 1 BAG IV ONE (09:00)
[2023-04-04] MEDS ORDERED: Labetalol 20 MG/4 ML Syringe ONE (10:56)
[2023-04-04 13:18] VITALS: BP 164/66; PULSE 73
== END 2023-04-04 13:29 | disposition home or self-care (01) ==
LOC: JP.SDS 07:52
PROVIDERS: ATTEND Specialist
DX: S46.012A Strain of muscle(s) and tendon(s) of the rotator cuff of left shoulder, initial encounter (principal); I25.10 Atherosclerotic heart disease of native coronary artery without angina pectoris; I10 Essential (primary) hypertension; E78.5 Hyperlipidemia, unspecified; Z79.899 Other long term (current) drug therapy; Z88.6 Allergy status to analgesic agent; Z88.2 Allergy status to sulfonamides; Z88.8 Allergy status to other drugs, medicaments and biological substances; Z88.5 Allergy status to narcotic agent
CPT/HCPCS: 0555T; 29805; 36415; 80048; 85027; A9270; C1713; J0690; J2704; J3010; J3490; J7120; 29999

== ENCOUNTER 2024-02-11 09:16 | Day surgery (SDC) | payer MEDICARE ==
[2024-02-11] MEDS: Lactated Ringers 1,000 ML IV SCH (10:27)
[2024-02-11] MEDS ORDERED: Propofol 200 MG/20 ML SDV ONE (13:42)
[2024-02-11] MEDS: Carbidopa/Levodopa 25-100 MG Tab PO ONE (14:02)
[2024-02-11 14:36] VITALS: PULSE 71
[2024-02-11 14:47] VITALS: BP 164/73
== END 2024-02-11 15:12 | disposition home or self-care (01) ==
LOC: JP.SDS 09:16
PROVIDERS: ATTEND Student in an Organized Health Care Education/Training Program
DX: K22.70 Barrett's esophagus without dysplasia (principal); K44.9 Diaphragmatic hernia without obstruction or gangrene; K63.5 Polyp of colon; R10.33 Periumbilical pain; I10 Essential (primary) hypertension; K21.9 Gastro-esophageal reflux disease without esophagitis; E78.5 Hyperlipidemia, unspecified; Z79.899 Other long term (current) drug therapy; Z88.2 Allergy status to sulfonamides; Z88.6 Allergy status to analgesic agent
CPT/HCPCS: 43239; 88305; A9270; J2704; J7120

== ENCOUNTER 2025-06-04 08:43 | Day surgery (SDC) | payer MEDICARE ==
[2025-06-04] MEDS ORDERED: Propofol 200 MG/20 ML SDV ONE (09:38)
[2025-06-04] MEDS ORDERED: fentaNYL 50 MCG/ML SDV ONE (09:38)
[2025-06-04] MEDS: Lactated Ringers 1,000 ML IV SCH (10:03)
[2025-06-04 12:31] VITALS: BP 120/49; PULSE 74
== END 2025-06-04 12:45 | disposition home or self-care (01) ==
LOC: JP.SDS 08:43
PROVIDERS: ATTEND Surgery
DX: K44.9 Diaphragmatic hernia without obstruction or gangrene (principal); I10 Essential (primary) hypertension; Z88.6 Allergy status to analgesic agent; Z88.5 Allergy status to narcotic agent; Z88.8 Allergy status to other drugs, medicaments and biological substances; Z88.2 Allergy status to sulfonamides
CPT/HCPCS: 00731; 43239; A9270; J2704; J7120; J3010